=== PATIENT | female | born 1950 | race Caucasian/White ===

== ENCOUNTER 2019-04-06 07:57 | Inpatient (IN) ==
[2019-03-31 18:30] LABS: Appearance,Urine HAZY; Bacteria,Urine FEW /hpf (0); Bilirubin,Urine NEG (NEG); Color,Urine YELLOW; Culture Indicated,Urine NO; Glucose,Urine (UA) NEGATIVE (NEG); Ketones,Urine NEG (NEG); Leukocyte Esterase,Urine 250 /uL (NEG); Mucus,Urine FEW /hpf (0); Nitrate,Urine POS (NEG); Protein,Urine NEG (NEG); Specific Gravity,Urine 1.015 (1.000-1.035); Urine Blood NEG mg/dL (<0.03); Urine Hyaline Cast 18 /lpf (0-2); Urine RBC 1 /hpf (0-1); Urine Squamous Epithelial Cell 5 /hpf (0-4); Urine WBC 84 /hpf (0-4); Urobilinogen,Urine NEG (NEG)
[2019-03-31 19:40] LABS: Basophils # (Auto) 0.06 K/mcL (0.00-0.30); Basophils % (Auto) 0.8 % (0.0-2.0); Eosinophils # (Auto) 0.27 K/mcL (0.00-0.70); Eosinophils % (Auto) 3.5 % (0.0-7.0); Granulocytes % (Auto) 70.1 % (38.0-78.0); Hematocrit 41.7 % (34.1-44.9); Hemoglobin 13.7 g/dL (11.2-15.7); Lymphocytes # (Auto) 1.47 K/mcL (1.50-4.80); Lymphocytes % (Auto) 19.2 % (15.5-49.0); Mean Cell Volume 94.6 fL (80.0-100.0); Mean Corpuscular HGB Conc 32.9 g/dL (31.0-36.0); Mean Platelet Volume 11.1 fL (7.4-10.4); Monocytes # (Auto) 0.49 K/mcL (0.10-0.90); Monocytes % (Auto) 6.4 % (1.0-12.0); Platelet Count 203 K/mcL (140-440); RBC 4.41 M/mcL (3.59-5.38); Red Cell Distribution Width 12.7 % (11.5-14.5); WBC 7.7 K/mcL (4.50-11.00)
[2019-03-31 19:55] LABS: Blood Urea Nitrogen 19 mg/dl (8-23); Calcium 10.2 mg/dl (8.6-10.4); Carbon Dioxide 24 mmol/L (22-30); Glomerular Filtration Rate 35; Glucose 94 mg/dL (70-105)
[2019-03-31 20:15] LABS: Chloride 92 mmol/L (96-108)
[~2019-04-06 07:57] MED LIST: 0.9 % SODIUM CHLORIDE 9 ML, KETOROLAC 30 MG, ROPIVACAINE HCL/PF 49.5 ML, EPINEPHrine 0.... IJ SCH; ACETAMINOPHEN 500 MG TABLET PO SCH; CELECOXIB 200 MG CAPSULE PO SCH; IPRATROPIUM/ALBUTEROL 3 ML AMPUL.NEB NEB PRN; PREGABALIN 75 MG CAPSULE PO SCH; SCOPOLAMINE 1 PATCH PATCH TOPICAL PRN; ceFAZolin 2 GM in DEXTROSE 5% IN WATER 50 ML IV SCH; oxyCODONE 10 MG TAB.ER.12H PO SCH
[2019-04-06 08:37] LABS: Cotinine 165 ng/mL; Nicotine 18 ng/mL
[2019-04-06] MEDS ORDERED: GLYCOPYRROLATE 0.2 MG/ML VIAL IV ONE (12:24)
[2019-04-06] MEDS ORDERED: LIDOCAINE HCL/PF 100 MG/5 ML SYRINGE IV ONE (12:24)
[2019-04-06] MEDS ORDERED: MIDAZOLAM 2 MG/2 ML VIAL IV ONE (12:24)
[2019-04-06] MEDS ORDERED: PROPOFOL 200 MG/20 ML VIAL IV ONE (12:24)
[2019-04-06] MEDS ORDERED: DEXAMETHASONE 10 MG/ML VIAL IV ONE (12:24)
[2019-04-06] MEDS ORDERED: KETAMINE 100 MG/ML ML IV ONE (12:24)
[2019-04-06] MEDS ORDERED: TRANEXAMIC ACID 1,000 MG/10 ML VIAL IV ONE ×2 (12:24→13:44)
[2019-04-06] MEDS ORDERED: ONDANSETRON 4 MG/2 ML VIAL IV ONE (12:24)
[2019-04-06] MEDS ORDERED: GENTAMICIN SULFATE 800 MG/20 ML VIAL IR ONE (13:07)
[2019-04-06] MEDS ORDERED: IPRATROPIUM/ALBUTEROL 3 ML AMPUL.NEB NEB PRN (13:36)
[2019-04-06] MEDS ORDERED: ONDANSETRON 4 MG/2 ML VIAL IV PRN ×2 (13:36→13:44)
[2019-04-06] MEDS ORDERED: MEPERIDINE 25 MG/ML SYRINGE IV PRN (13:36)
[2019-04-06] MEDS ORDERED: fentaNYL 100 MCG/2 ML VIAL IV PRN (13:36)
[2019-04-06] MEDS ORDERED: METHOCARBAMOL 1,000 MG/10 ML VIAL IV PRN (13:36)
[2019-04-06] MEDS ORDERED: TEMAZEPAM 15 MG CAPSULE PO PRN (13:44)
[2019-04-06] MEDS ORDERED: FLEETS ADULT ENEMA PR PRN (13:44)
[2019-04-06] MEDS ORDERED: POLYETHYLENE GLYCOL 3350 17 GM PACKET PO PRN (13:44)
[2019-04-06] MEDS ORDERED: ACETAMINOPHEN 325 MG TABLET PO PRN (13:44)
[2019-04-06] MEDS ORDERED: KETOROLAC 15 MG/ML VIAL IV PRN (13:44)
[2019-04-06] MEDS ORDERED: BENZOCAINE/MENTHOL 1 LOZENGE PO PRN (13:44)
[2019-04-06] MEDS ORDERED: BISACODYL 10 MG SUPP.RECT PR PRN (13:44)
[2019-04-06] MEDS ORDERED: MAGNESIUM HYDROXIDE 30 ML ORAL.SUSP PO PRN (13:44)
--- NOTE | 2019-04-06 13:44 | Brief Operative Note ---
Date of procedure: 04/06/19 Pre-op diagnosis: Left hip djd Post-op diagnosis: same Procedure: left total hip Grafts/Implants: Yes Anesthesia: ALLIEA Surgeon: Kade Ledbetter Field Seismologist: Jon Macias Estimated blood loss (cc): 100 Specimens Removed/Pathology: none sent Condition: stable Disposition: PACU
[2019-04-06] MEDS ORDERED: LACTATED RINGERS 1,000 ML IV SCH (13:45)
[2019-04-06] MEDS ORDERED: HYDROcodone/APAP 10/325MG TABLET PO PRN (13:50)
[2019-04-06] MEDS ORDERED: ONDANSETRON 4 MG ODT TABLET SL PRN (13:50)
[2019-04-06] MEDS ORDERED: DIAZEPAM 5 MG TABLET PO PRN (13:50)
[2019-04-06] MEDS ORDERED: NICOTINE 14 MG PATCH TOPICAL SCH (14:00)
--- NOTE | 2019-04-06 14:36 | XRay Report ---
HISTORY: Postop left hip replacement FINDINGS: There is a well-positioned left total hip prosthesis. There is no fracture or abnormal soft tissue calcification around the joint. Patient has stents in the right external iliac and left superficial femoral arteries. Severe atherosclerotic disease is present in the pelvis and thighs. There has been prior spinal fusion at L4-5. IMPRESSION: Well-positioned left hip prosthesis Interpreted and Authenticated by: Aristeo Villafuerte 04/06/19
--- NOTE | 2019-04-06 15:11 | Operative Note ---
DATE OF OPERATION: 04/06/2019 PREOPERATIVE DIAGNOSIS: Left hip degenerative arthritis, severe. POSTOPERATIVE DIAGNOSIS: Left hip degenerative arthritis, severe. PROCEDURE: Left total hip arthroplasty with Maria Del Rosario size 6 stem neutral neck length with a 36 mm ceramic ball with a size 54 cup cementless with a 25 mm screw with a hooded liner. SURGEON: Kade Ledbetter M.D. ESTIMATED BLOOD LOSS: About 100 mL. DESCRIPTION OF PROCEDURE: The patient was brought to the operating room and put to sleep with general LMA anesthesia. Once asleep, the patient had the left hip sterilely prepped and draped in the usual sterile fashion. Once this was done, a timeout performed confirming the operative site by initials, consent form, and x-ray. Once done, we made a superior approach to the hip. We exposed the superior capsule and this was released. We released the piriformis and obturator internus as well and then subluxed the hip. We cut the neck length at 34 mm from the center of hip rotation using a reciprocating saw. Once done, we were able to then sublux the hip anteriorly, remove the labrum, ream up to the size of 54, implanted a 54 cup, and placed a 25 mm screw with good purchase. We were able then to place a hooded liner. The alignment of the cup was excellent with 40 degrees of inclination and 20 degrees of anteversion. Once done and the poly liner was confirmed, we then prepared the femoral side. This was broached up to the size 6 stem. We took an x-ray of the size 6 stem in a neutral neck length. This seemed to be equal in leg length, and it was noted on x-ray to have quite a capacious distal canal. We then placed some bony cement on the distal stem given the size of the canal for security reasons and tapped the size [address] A ceramic ball with a neutral neck length was placed. The hip was reduced. We irrigated thoroughly and the hip was very stable throughout the arc of motion. We irrigated, repaired the posterior capsule with #1 Ethibond, closed the fascial layer with #1 Stratafix. The skin was closed with Stratafix and adhesive closure to the skin with a sterile bandage. The patient tolerated this well without complication. ROGER:nima Job ID: [id number] Doc ID: [id number] Kade Ledbetter MD
--- NOTE | 2019-04-06 15:52 | Discharge Summary ---
Ortho Discharge - TKA - Patient Instructions Diet: Regular Diet Activity: activity as tolerated, weight bearing as tolerated Total Knee Protocol: For Total Knee: Start ROM BRII with stationary bike or rocking chair. Work on gaining full extension of knee. Posterior dislocation precautions provided. Hip abductor strengthening and gait training instructions provided. Apply Cryocuff as instructed. Dressing Care: May shower in 2 days - Follow Up Plan Follow Up Appointments: Jon Macias PA-C [Physician Cover Seamer] - 04/21/19 9:20 am Disposition: Home, Self-Care Prognosis: Good Rehab Potential: Good I certify that the patient requires SNF services: No Overall status at discharge: patient is progressing back to baseline - Orders For Discharge Prescriptions: Docusate Sodium [Colace] 100 mg PO BID #60 cap Transmission [facility]: [facility] Aspirin [Ecotrin] 325 mg PO BID #60 tab.ec Transmission Status: Pending to [facility]
[2019-04-06] MEDS: HYDROmorphone 2 MG/ML VIAL IV PRN ×3 (16:13→22:33)
[2019-04-06] MEDS: LACTATED RINGERS 1,000 ML IV SCH ×2 (16:14→22:33)
[2019-04-06] MEDS: oxyCODONE/APAP 5/325MG TABLET PO PRN ×2 (17:44→22:33)
[2019-04-06] MEDS: 0.9 % SODIUM CHLORIDE 10 ML SYRINGE IV SCH ×2 (18:56→22:32)
[2019-04-06] MEDS: ceFAZolin 1 GM VIAL IV SCH (20:34)
[2019-04-06] MEDS: DOCUSATE SODIUM 100 MG CAPSULE PO SCH (20:34)
[2019-04-06] MEDS: FERROUS SULFATE 325 MG TABLET PO SCH (20:34)
[2019-04-06] MEDS: ASPIRIN 325 MG ENTERIC COATED TABLET PO SCH (20:34)
[2019-04-06] MEDS ORDERED: morphine 15 MG TAB.SR.12H PO SCH (21:00)
[2019-04-06] MEDS ORDERED: SENNOSIDES 1 TABLET PO SCH (21:00)
[2019-04-06] MEDS: Budesonide/Formoterol Fumarate [Symbicort] 160-4.5 mcg Inhaler INH SCH (22:26)
[2019-04-07] MEDS: HYDROmorphone 2 MG/ML VIAL IV PRN (00:44)
[2019-04-07] MEDS: ceFAZolin 1 GM VIAL IV SCH (04:03)
[2019-04-07] MEDS: 0.9 % SODIUM CHLORIDE 10 ML SYRINGE IV SCH (05:03)
[2019-04-07] MEDS ORDERED: CHLORTHALIDONE 25 MG TABLET PO SCH (09:00)
[2019-04-07] MEDS ORDERED: buPROPion 100 MG TABLET PO SCH (09:00)
[2019-04-07] MEDS ORDERED: busPIRone 5 MG TABLET PO SCH (09:00)
[2019-04-07] MEDS ORDERED: DILTIAZEM 120 MG CAP.XL.24H PO SCH (09:00)
[2019-04-07] MEDS ORDERED: METOPROLOL SUCCINATE 50 MG TAB.XL.24H PO SCH (09:00)
[2019-04-07] MEDS: ASPIRIN 325 MG ENTERIC COATED TABLET PO SCH (09:15)
[2019-04-07] MEDS: FERROUS SULFATE 325 MG TABLET PO SCH (09:15)
[2019-04-07] MEDS: oxyCODONE/APAP 5/325MG TABLET PO PRN ×2 (09:17→14:07)
[2019-04-07] MEDS: DOCUSATE SODIUM 100 MG CAPSULE PO SCH (09:18)
[2019-04-07] MEDS: Budesonide/Formoterol Fumarate [Symbicort] 160-4.5 mcg Inhaler INH SCH (09:19)
[2019-04-07] MEDS: LACTATED RINGERS 1,000 ML IV SCH (09:19)
[2019-04-07] MEDS ORDERED: FLU VACC QS2019-20(6MOS UP)/PF 60 MCG/0.5 ML SYRINGE IM ONE (13:45)
[2019-04-07] MEDS ORDERED: PNEUMOCOCCAL 23-VAL P-SAC VAC 0.5 ML SYRINGE IM ONE (14:00)
== END 2019-04-07 14:20 | disposition home or self-care (01) | DRG 470 ==
LOC: MEDSUR 07:57
PROVIDERS: ADMIT Orthopaedic Surgery; ATTEND Orthopaedic Surgery

== ENCOUNTER 2021-06-28 14:02 | Inpatient (IN) ==
--- NOTE | 2021-06-28 14:17 | Emergency Department Note ---
SOB HPI General Chief Complaint: Shortness of Breath/Dyspnea Stated Complaint: shortness of breath Time Seen by Provider: 06/28/21 14:05 Source: patient, family and EMS Mode of arrival: ambulatory History of Present Illness HPI Narrative: Narrative: 70-year-old female with a history of hyperparathyroidism, COPD, CKD stage III, hypertension, chronic A. fib with no anticoagulation, easy bruising, congestive heart failure, GERD and dysthymia is brought to the ER by ambulance for shortness of breath. She states she was checked out by Dr. Joe the senior occupational therapist yesterday and things looked good. He talked her into starting a daily aspirin as she is not anticoagulated for her chronic atrial fibrillation. She states she bruises easily and that is why she does not want a be on them. She said out of the blue several hours ago she developed shaking chills and shortness of breath. She is around 91% on 4 L/min. She received 2 DuoNeb's in the ambulance with no significant relief. She denies fever, nausea, vomiting, chest pain or chest pressure. She has had no urinary symptoms. Related Data Home Medications Medication Instructions Recorded Confirmed chlorthalidone 25 mg tablet 25 mg PO DAILY #30 tab 10/30/18 06/13/21 aspirin 81 mg tablet,delayed 81 mg PO QDAY 01/13/19 06/13/21 release (Adult Aspirin Regimen) ondansetron 4 mg disintegrating 4 mg SL Q4-6HP PRN 01/13/19 06/13/21 tablet atorvastatin 40 mg tablet 40 mg PO tab 07/14/20 06/13/21 Previous Rx's Medication Instructions Recorded budesonide-formoterol HFA 160 2 puff INHALATION BID #10.2 g 03/12/17 mcg-4.5 mcg/actuation aerosol inhaler (Symbicort) diltiazem HCl 120 mg capsule,24 120 mg PO QDAY #90 cap 11/03/18 hr,extended release docusate sodium 100 mg capsule 100 mg PO BID #60 cap 04/06/19 naloxone 4 mg/actuation nasal 4 mg INTRANASAL ONCE #2 each 04/20/20 spray (Narcan) cholecalciferol (vitamin D3) 25 1,000 unit PO QDAY #90 cap 06/13/20 mcg (1,000 unit) capsule (Vitamin D3) metoprolol succinate 50 mg See Rx Instructions .ROUTE 09/20/20 tablet,extended release 24 hr .COMPLEX 90 Days #180 tab hydrocodone 10 mg-acetaminophen 1 tab PO TID #90 tab MDD 3 04/18/21 325 mg tablet bupropion HCl 100 mg tablet 100 mg PO QDAY #30 tab 05/29/21 diazepam 5 mg tablet 5 mg PO HSP PRN #30 tab 06/05/21 nystatin 100,000 unit/gram topical 1 applic TOPICAL BID #30 g 06/13/21 powder Allergies Allergy/AdvReac Type Severity Reaction Status Date / Time hydroxyzine AdvReac Severe with heart Verified 06/13/21 14:01 palpitations afib going nuts NSAIDS (Non-Steroidal AdvReac Mild Gastrointestinal Verified 06/13/21 14:01 Anti-Inflamma Upset Sulfa (Sulfonamide AdvReac Mild Itching Verified 06/13/21 14:01 Antibiotics) sumatriptan [From Imitrex] AdvReac Mild does not Verified 06/13/21 14:01 work Review of Systems ROS ROS Narrative: Narrative: All systems ED: reviewed and negative except as stated. PFSH Narrative Patient History Narrative: Narrative: Medical/Surgical/Family History All Active Problems (Updated 06/28/21 @ 16:42 by Sacha Seaman PA-C) Pulmonary embolism (Acute) DVT (deep venous thrombosis) (Acute) Pneumonia (Acute) Hyponatremia (Chronic) Hyperparathyroidism (Chronic) Medicare annual wellness visit, initial (Acute) Use of opiates for therapeutic purposes (Chronic) Pruritus (Chronic) Chronic kidney disease (CKD) stage G3b/A1, moderately decreased glomerular filtration rate (GFR) between 30-44 mL/min/1.73 square meter and albuminuria creatinine ratio less than 30 mg/g (Chronic) Right knee sprain (Acute) Osteoarthritis of right knee (Acute) Insomnia (Acute) Essential hypertension (Chronic) Minor head injury (Acute) Atrial fibrillation (Acute) Elevated diaphragm (Chronic) Tobacco use (Chronic) COPD (chronic obstructive pulmonary disease) (Chronic) Menopausal symptoms (Chronic) Contusion of left lower leg (Acute) Chronic cough (Chronic) Migraine (Chronic) Bronchitis due to tobacco use (Chronic) Thyroid nodule (Chronic) CHF (congestive heart failure) (Chronic) Geriatric health maintenance (Chronic) Difficulty swallowing (Chronic) Hoarseness or changing voice (Chronic) Hip arthrosis (Chronic) Bilateral lower extremity pain (Chronic) Chronic low back pain (Chronic) History of ECG (Chronic 03/22/15) History of esophagogastroduodenoscopy (Chronic 11/30/14) 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) Closed patellar sleeve fracture of left knee (Acute) Osteoarthritis (Chronic) Major depression, recurrent (Chronic) Hyperlipidemia (Chronic) Gastroesophageal reflux (Chronic) Dysthymic disorder (Chronic) History of colonic polyps (Chronic) Secondary cardiomyopathy (Chronic) Medical History Anxiety Atrial fibrillation Bilateral lower extremity pain With history of lumbar spondylosis with radiculopathy, currently without myelopathy Breast mass, right (09/01/14) Bronchitis, acute CHF (congestive heart failure) Chronic cough Chronic low back pain Closed patellar sleeve fracture of left knee L COPD (chronic obstructive pulmonary disease) Dysthymic disorder Elevated diaphragm Essential hypertension Gastroenteritis, non-infectious Gastroesophageal reflux Geriatric health maintenance Hip arthrosis Hip arthrosis with chronic pain, currently improved following intaarticular injection History of colonic polyps History of ECG (03/22/15) Hoarseness or changing voice Hyperlipidemia Major depression, recurrent Mass of neck Medicare annual wellness visit, initial Menopausal and postmenopausal disorder Menopausal symptoms Migraine Muscle spasm (09/01/14) Osteoarthritis Right knee sprain Secondary cardiomyopathy Sinusitis Thyroid nodule Incidental finding on chest CT 11/2016 -Subsequent thyroid ultrasound was performed and the nodules are thought to be benign -Repeat thyroid ultrasound 07/2017 benign, stable nodules Tobacco use Use of opiates for therapeutic purposes Surgical History H/O colonoscopy [address] Dr. Palumbo, repeat in 10 years History of arthroscopy of left knee History of cervical discectomy C5-6 with fusion History of esophagogastroduodenoscopy (11/30/14) Dr. Green, April 2016 History of hysterectomy OTIS/BSO at 30 years old History of laminectomy L4-5 History of removal of cyst History of vascular surgery Left Femoral artery stent, Right external Illiac artery stent, Dr PÉREZ 05/2018 Partial traumatic metacarpophalangeal amputation of left index finger artial L index finger Status post hip surgery total left hip, Dr. Ledbetter 04/06/2019 anterior approach Family History Unknown Chronic kidney disease, stage V Malignant neoplasm Father , at 78y Atherosclerosis of coronary artery Diabetes mellitus Essential hypertension Mother Osteoarthritis Peptic ulcer Social History Smoking Status: Current every day smoker Alcohol Intake Frequency: does not drink Exam Narrative Narrative: Narrative: Gen: Patient has shaking chills that are uncontrollable, nasal cannula with 4 L/min, oxygen saturations in the low 90s on 4 L. She looks ill. Eyes: PERRL, no conjunctival injection , and symmetrical lids. Sclerae non icteric HENMT: Normocephalic Atraumatic head, external nose and ears. Moist MM. Neck: Symmetric, trachea midline, no JVD CVS: +S1/S2, No murmurs or gallops. Radial pulses 2+ and equal bilat. No sw elling RESP: Tachypnea, mild wheezing heard throughout with good air movement. GI: Nontender/Nondistended (NTND), No focal tenderness MSK: Extremities w/o deformity or ttp. No cyanosis or clubbing. Skin: Cool dry . No rashes or lesions . Cap refill delayed. Neuro: No focal neurological deficit Psych: Awake, Alert, & Oriented (AAO) x3. Anxious affect. Course Vital Signs Vital signs: Vital Signs Temperature 98.2 F 06/28/21 14:04 Pulse Rate 128 H 06/28/21 14:04 Respiratory Rate 39 H 06/28/21 14:04 Blood Pressure 139/101 06/28/21 14:04 Pulse Oximetry (%) 91 06/28/21 14:04 Temperature 98.2 F 06/28/21 14:04 Pulse Rate 99 H 06/28/21 15:55 Respiratory Rate 26 H 06/28/21 15:55 Blood Pressure 107/77 06/28/21 15:55 Pulse Oximetry (%) 96 06/28/21 15:55 MDM MDM Narrative Medical decision making narrative: Narrative: Patient came in via ambulance with shaking chills, they were unable to get a good Plath or oxygen saturation reading because her hands were so cold. She is very tremulous and shaking. She is anxious. Her sats here in the low 90s on 4 L/min via nasal cannula. She is wheezing throughout but has good air movement. She is tachycardic in the 120s. She is in atrial fibrillation. She is not anticoagulated for this and was to start a daily aspirin starting today but did not take it yet. She denies chest pain, chest pressure or hemoptysis. She will be evaluated with CBC, CMP, EKG, chest x-ray, venous blood gas, lactate, blood cultures, troponin and BNP. CBC: Slightly elevated white count with left shift CMP: GFR of 23 otherwise unremarkable Venous blood gas: Lactate: 4.4 Blood cultures: Pending BNP: elevated at 3000 Troponin: 0 L Covid: Negative EKG: Atrial fibrillation rate of 98 bpm with left axis deviation, no evidence or ST or T wave abnormality to suggest acute ischemia at this time. Chest x-ray: Possible pneumonia vs aspiration UA: No evidence of infection Patient has longstanding history of COPD she became suddenly short of breath and had shaking chills. There is no obvious focal infiltrate on chest x-ray. But this is the most likely source for infectious process. Her initial lactate is 4.4. she is tachycardic and tachypneic meeting SIRS criteria. Initial broad- spectrum antibiotics for pulmonary coverage for community-acquired pneumonia w ill be given. 500 mg of azithromycin and 1 g of Rocephin. Patient will not have empiric bolus of 30 mg/kg of fluid given she has a history of congestive heart failure. She will be started with 500 mL bolus and reevaluated. Repeat lactate will be ordered after reevaluation. Patient is afebrile and maintaining her blood pressure currently There is concern for pulmonary embolism however, her GFR is well below 30 and given the contrast load it is contraindicated. Noncontrast CT of the chest will be ordered as well as venous duplex ultrasound of the bilateral lower extremities. Reevaluation: Patient is much calmer after having a bear hugger placed to warm her up. CT chest:1. Moderate-sized patchy mixed L velar interstitial infiltrates in both posterior lower lobes and scattered within the lingula and inferior right middle lobe. Suspect aspiration or infection. Underlying chronic bronchitis 2. Elevation right diaphragm with broad eventration central tendon right diaphragm - chronic 3. 20 mm benign adenoma left adrenal gland demonstrating long-term stability. 4. 15 mm benign adenoma right thyroid lobe long-term stable Venous duplex ultrasound bilateral: Blood clot in the right posterior tibial vein from the heel to mid calf Complete thrombosis of the right paired posterior tibial veins.The remaining deep venous system of both lower extremities is unremarkable Patient has a presumptive diagnosis of pulmonary embolism. We are still waiting on CT chest to come back. Patient will hopefully be admitted inpatient hospitalist will be contacted at this time. Hospitalist: Patient requested the patient be placed on a heparin drip and he will be glad to admit her. Patient will be started on 5000 initial heparin bolus followed by 18 mg/kg/h. Lab Data Result diagrams: 06/28/21 14:13 06/28/21 14:13 Labs: Lab Results 06/28/21 06/28/21 06/28/21 Range/Units 14:13 14:13 14:44 WBC 11.8 H (4.5-11.0) K/mcL RBC 4.72 (3.59-5.38) M/mcL Hgb 14.9 (11.2-15.7) g/dL Hct 46.6 H (34.1-44.9) % MCV 98.7 (80.0-100.0) fL MCH 31.6 (26.0-34.0) pg MCHC 32.0 (31.0-36.0) g/dL RDW 14.0 (11.5-14.5) % Plt Count 196 (140-440) K/mcL MPV 11.7 H (7.4-10.4) fL Neut % (Auto) 95.0 H (38.0-78.0) % Lymph % (Auto) 4.3 L (15.5-49.0) % [place] % (Auto) 0.4 L (1.0-12.0) % Eos % (Auto) 0.1 (0.0-7.0) % Baso % (Auto) 0.2 (0.0-2.0) % Lymph # (Auto) 0.51 L (1.50-4.80) K/mcL [place] # (Auto) 0.05 L (0.10-0.90) K/mcL Eos # (Auto) 0.01 (0.00-0.70) K/mcL Baso # (Auto) 0.02 (0.00-0.30) K/mcL Absolute Neutrophils 11.17 H (1.80-8.00) K/mcL Sodium 138 (133-145) mmol/L Potassium 3.3 (3.3-5.1) mmol/L Chloride 98 (96-108) mmol/L Carbon Dioxide 24 (22-30) mmol/L Anion Gap 16.0 (8.0-16.0) BUN 16 (8-23) mg/dL Creatinine 2.1 H (0.6-1.1) mg/dL POC Creatinine 2.2 H (0.6-1.2) mg/dL GFR Calculation 23 Glucose 125 H (70-105) mg/dL Calcium 10.3 (8.6-10.4) mg/dL Total Bilirubin 0.8 (0.1-1.0) mg/dL AST 12 (<32) U/L ALT 8 (<40) U/L Alkaline Phosphatase 111 (39-117) U/L NT-Pro-B Natriuret Pep 3092.0 H (<125.0) pg/mL Total Protein 6.5 (5.9-8.4) gm/dL Albumin 3.8 (3.2-5.2) gm/dL Globulin 2.7 (2.2-3.7) gm/dL Albumin/Globulin Ratio 1.4 (1.0-2.3) Urine Color Urine Appearance (Clear) Urine pH (5.0-9.0) Ur Specific Wilbur (1.000-1.035) Urine Protein (Negative) mg/dL Urine Glucose (UA) (Negative) mg/dL Urine Ketones (Negative) mg/dL Urine Occult Blood (Negative) mg/dL Urine Nitrate (Negative) Urine Bilirubin (Negative) mg/dL Urine Urobilinogen mg/dL Ur Leukocyte Esterase (Negative) /uL Urine RBC (0-3) /hpf Urine WBC (0-4) /hpf Ur Squamous Epith Cells (0-4) /hpf Urine Bacteria (0) /hpf Hyaline Casts (0-2) /lph Urine Mucus (None) /hpf Ur Culture Indicated? POC Troponin I 0 L (0.02-0.08) ng/mL 06/28/21 Range/Units 14:53 WBC (4.5-11.0) K/mcL RBC (3.59-5.38) M/mcL Hgb (11.2-15.7) g/dL Hct (34.1-44.9) % MCV (80.0-100.0) fL MCH (26.0-34.0) pg MCHC (31.0-36.0) g/dL RDW (11.5-14.5) % Plt Count (140-440) K/mcL MPV (7.4-10.4) fL Neut % (Auto) (38.0-78.0) % Lymph % (Auto) (15.5-49.0) % [place] % (Auto) (1.0-12.0) % Eos % (Auto) (0.0-7.0) % Baso % (Auto) (0.0-2.0) % Lymph # (Auto) (1.50-4.80) K/mcL [place] # (Auto) (0.10-0.90) K/mcL Eos # (Auto) (0.00-0.70) K/mcL Baso # (Auto) (0.00-0.30) K/mcL Absolute Neutrophils (1.80-8.00) K/mcL Sodium (133-145) mmol/L Potassium (3.3-5.1) mmol/L Chloride (96-108) mmol/L Carbon Dioxide (22-30) mmol/L Anion Gap (8.0-16.0) BUN (8-23) mg/dL Creatinine (0.6-1.1) mg/dL POC Creatinine (0.6-1.2) mg/dL GFR Calculation Glucose (70-105) mg/dL Calcium (8.6-10.4) mg/dL Total Bilirubin (0.1-1.0) mg/dL AST (<32) U/L ALT (<40) U/L Alkaline Phosphatase (39-117) U/L NT-Pro-B Natriuret Pep (<125.0) pg/mL Total Protein (5.9-8.4) gm/dL Albumin (3.2-5.2) gm/dL Globulin (2.2-3.7) gm/dL Albumin/Globulin Ratio (1.0-2.3) Urine Color Yellow Urine Appearance Hazy A (Clear) Urine pH 5.0 (5.0-9.0) Ur Specific Wilbur 1.011 (1.000-1.035) Urine Protein Negative (Negative) mg/dL Urine Glucose (UA) Negative (Negative) mg/dL Urine Ketones Negative (Negative) mg/dL Urine Occult Blood 0.03 (Negative) mg/dL Urine Nitrate Negative (Negative) Urine Bilirubin Negative (Negative) mg/dL Urine Urobilinogen Negative mg/dL Ur Leukocyte Esterase 500 A (Negative) /uL Urine RBC 2 (0-3) /hpf Urine WBC 110 H (0-4) /hpf Ur Squamous Epith Cells 7 H (0-4) /hpf Urine Bacteria None (0) /hpf Hyaline Casts 1 (0-2) /lph Urine Mucus Few A (None) /hpf Ur Culture Indicated? No POC Troponin I (0.02-0.08) ng/mL ED POC Tests ED POC Tests: CATHY - SARS Antigen Negative Discharge Plan Patient/Caregiver Discharge Instructions Pt seen by DIRECTOR BUSINESS/PA only: Yes Clinical Impression: Pulmonary embolism, DVT (deep venous thrombosis), Pneumonia Patient Disposition: Xfer As Inpt ([facility]) Follow up with: Guadalupe Oliveira DO [Primary Care Provider] - Prescriptions: No Action diltiazem HCl 120 mg capsule,extended release 24 hr 120 mg PO QDAY Qty: 90 1RF cholecalciferol (vitamin D3) [Vitamin D3] 25 mcg (1,000 unit) capsule 1,000 unit PO QDAY Qty: 90 4RF bupropion HCl 100 mg tablet 100 mg PO QDAY Qty: 30 0RF diazepam 5 mg tablet 5 mg PO HSP PRN (Reason: Sleep) Qty: 30 0RF Rx Instructions: Michelle Wyatt PA-C one time fill in Dr. Oliveira absence Narcan 4 mg/actuation spray,non-aerosol 4 mg INTRANASAL ONCE Qty: 2 0RF Rx Instructions: spray 1 dose into ONE nostril; alternate nostrils w each dose until help arrives atorvastatin 40 mg tablet 40 mg PO 0RF Label Comments: TAKE ONE TABLET BY MOUTH AT BEDTIME FOR CHOLESTEROL hydrocodone-acetaminophen 10-325 mg tablet 1 tab PO TID MDD 3 Qty: 90 0RF Rx Instructions: *MUST LAST 30 DAYS* P/U 06/23, START 06/26 chlorthalidone 25 mg tablet 25 mg PO DAILY Qty: 30 0RF Label Comments: TAKE 1 TABLET(S) EVERY DAY BY ORAL ROUTE. budesonide-formoterol [Symbicort] 160-4.5 mcg/actuation HFA aerosol inhaler 2 puff INHALATION BID Qty: 10.2 6RF Rx Instructions: administer with spacer aspirin [Adult Aspirin Regimen] 81 mg tablet,delayed release (DR/EC) 81 mg PO QDAY 0RF ondansetron 4 MG tablet 4 mg SL Q4-6HP PRN (Reason: Nausea And Vomiting) 0RF metoprolol succinate 50 mg tablet extended release 24 hr See Rx Instructions .ROUTE .COMPLEX 90 Days Qty: 180 2RF Dose Instruction: TAKE TWO TABLETS BY MOUTH DAILY FOR BLOOD PRESSURE Rx Instructions: TAKE TWO TABLETS BY MOUTH DAILY FOR BLOOD PRESSURE nystatin 100,000 unit/gram powder 1 applic topical BID Qty: 30 3RF docusate sodium 100 MG capsule 100 mg PO BID Qty: 60 0RF
[2021-06-28] MEDS ORDERED: AZITHROMYCIN 500 MG in DEXTROSE 5% IN WATER 250 ML IV ONE (14:38)
[2021-06-28] MEDS ORDERED: cefTRIAXone 1 GM VIAL IV ONE (14:38)
[2021-06-28] MEDS ORDERED: 0.9 % SODIUM CHLORIDE 500 ML IV ONE (14:40)
--- NOTE | 2021-06-28 14:49 | XRay Report ---
CLINICAL INFORMATION: Shortness of breath COMPARISON: 03/05/2018 TECHNIQUE: Portable FINDINGS: The heart size, mediastinum and pulmonary vessels are unremarkable. Moderate interstitial disease is developed in both lower lungs since the previous exam. There are no effusions. The bones and soft tissues are within normal limits. IMPRESSION: Moderate interstitial disease in both lower lungs-new from exam over three years prior. Exact etiology and chronicity unknown. It could represent pneumonia or aspiration. Interpreted and Authenticated by: Khai Lim 06/28/21
[2021-06-28 15:31] LABS: Basophils # (Auto) 0.02 K/mcL (0.00-0.30); Basophils % (Auto) 0.2 % (0.0-2.0); Eosinophils # (Auto) 0.01 K/mcL (0.00-0.70); Eosinophils % (Auto) 0.1 % (0.0-7.0); Hematocrit 46.6 % (34.1-44.9); Hemoglobin 14.9 g/dL (11.2-15.7); Lymphocytes # (Auto) 0.51 K/mcL (1.50-4.80); Lymphocytes % (Auto) 4.3 % (15.5-49.0); Mean Cell Volume 98.7 fL (80.0-100.0); Mean Platelet Volume 11.7 fL (7.4-10.4); Monocytes # (Auto) 0.05 K/mcL (0.10-0.90); Monocytes % (Auto) 0.4 % (1.0-12.0); Platelet Count 196 K/mcL (140-440); RBC 4.72 M/mcL (3.59-5.38); WBC 11.8 K/mcL (4.5-11.0)
[2021-06-28 15:37] LABS: ALT/SGPT 8 U/L (<40); AST/SGOT 12 U/L (<32); Albumin 3.8 gm/dL (3.2-5.2); Albumin/Globulin Ratio 1.4 (1.0-2.3); Alkaline Phosphatase 111 U/L (39-117); Bilirubin,Total 0.8 mg/dL (0.1-1.0); Blood Urea Nitrogen 16 mg/dL (8-23); Calcium 10.3 mg/dL (8.6-10.4); Carbon Dioxide 24 mmol/L (22-30); Chloride 98 mmol/L (96-108); Globulin 2.7 gm/dL (2.2-3.7); Glomerular Filtration Rate 23; Glucose 125 mg/dL (70-105)
--- NOTE | 2021-06-28 16:01 | Ultrasound Report ---
CLINICAL INFORMATION: Bilateral leg pain COMPARISON: None. FINDINGS: There is complete thrombosis of paired right posterior tibial veins. The remaining deep venous system of both lower extremities including the common femoral, superficial femoral, popliteal and paired trifurcation calf veins are easily compressible and show normal venous blood flow on color and spectral Doppler. No evidence of thrombus IMPRESSION: Complete thrombosis of the right paired posterior tibial veins.The remaining deep venous system of both lower extremities is unremarkable Interpreted and Authenticated by: Khai Lim 06/28/21
[2021-06-28 16:02] LABS: Appearance,Urine HAZY (Clear); Bilirubin,Urine Negative (Negative); Color,Urine YELLOW; Culture Indicated,Urine No; Glucose,Urine (UA) Negative (Negative); Ketones,Urine Negative (Negative); Leukocyte Esterase,Urine 500 /uL (Negative); Mucus,Urine FEW /hpf; Nitrate,Urine Negative (Negative); Protein,Urine Negative (Negative); Specific Gravity,Urine 1.011 (1.000-1.035); Urine Blood 0.03 mg/dL (Negative); Urine Hyaline Cast 1 /lph (0-2); Urine RBC 2 /hpf (0-3); Urine Squamous Epithelial Cell 7 /hpf (0-4); Urine WBC 110 /hpf (0-4); Urobilinogen,Urine Negative
--- NOTE | 2021-06-28 16:26 | Cat Scan Report ---
CLINICAL INFORMATION: Hypoxia COMPARISON: 07/16/[address] without contrast TECHNIQUE: 0.625 mm axial slices were obtained from the lung apices through the bases without intravenous contrast. 2.5 mm Sagittal, coronal and axial reformatted images were processed and reviewed at bone, lung and soft tissue windows. 7 mm axial MIP images were also reconstructed to optimize pulmonary nodule detection.The exam was performed using radiation dose optimization techniques including, but not limited to, automated exposure control, adjustment of the mA and/or kV according to patient size and use of iterative reconstruction technique. FINDINGS: Pulmonary parenchymal windows show mild chronic bronchitis changes featuring elevated lung volumes and wall thickening of the bronchi. There are no bullae suggest sangeeta emphysema. Since prior examination, moderate size mixed interstitial/alveolar infiltrates have developed in both posterior lower lobes and scattered within the lingula and right middle lobe. There are no effusions. Mediastinal windows show mild cardiomegaly. The noncontrast thoracic aorta and pulmonary arteries are normal in contour and caliber. No adenopathy in the mediastinal hilar or axillary regions. A 15 mm low-attenuation lesion posterior right thyroid lobe is unchanged since 2011. Mild elevation right diaphragm with eventration central diaphragm is stable. Bones and soft tissues of the chest wall are otherwise normal. Images through abdomen show a 20 mm diameter low-attenuation adenoma in the left adrenal gland which demonstrates long-term stability IMPRESSION: 1. Moderate-sized patchy mixed L velar interstitial infiltrates in both posterior lower lobes and scattered within the lingula and inferior right middle lobe. Suspect aspiration or infection. Underlying chronic bronchitis 2. Elevation right diaphragm with broad eventration central tendon right diaphragm - chronic 3. 20 mm benign adenoma left adrenal gland demonstrating long-term stability. 4. 15 mm benign adenoma right thyroid lobe long-term stable Interpreted and Authenticated by: Khai Lim 06/28/21
[2021-06-28] MEDS ORDERED: HEPARIN SOD,PORK IN 0.45% NACL 25,000 UNIT in PREMIX 1 BAG IV SCH (16:30)
[2021-06-28] MEDS ORDERED: HEPARIN 5,000 UNIT/ML VIAL IV ONE (16:37)
[2021-06-28] MEDS ORDERED: HEPARIN SOD,PORK IN 0.45% NACL 500 ML IV ONE (17:11)
[2021-06-28] MEDS: HEPARIN SOD,PORK IN 0.45% NACL 25,000 UNIT in PREMIX 1 BAG IV SCH (17:11)
--- NOTE | 2021-06-28 18:15 | Internal Med History&Physical ---
HPI History of Present Illness Patient information: Note initiated : 06/28/21 at 6:04 pm Service Date, if different from initiated Date: [] Patient: Nasima Solo a 70 y/o F admitted on for shortness of breath. Chief Complaint: [] Chief complaint: Chills and acute shortness of breath History of present illness: Ms. Solo is a 70 year old F with history of CHF, CKD, hypertension, atrial fibrillation, COPD, active tobacco use, chronic bronchitis, chronic pain syndrome on opiate therapy, peripheral vascular disease, hyperlipidemia, is admitted for acute onset of chills with shortness of breath this morning. Patient was feeling completely well yesterday, she had her appointment with baking factory worker and cardiac stress test was ordered as an outpatient. Her baking factory worker had a discussion about anticoagulation for atrial fibrillation with her, patient declined full dose anticoagulation (she was concerned that she could have at least scars), but agreed to start baby aspirin. This morning however she acutely had chills accompanied with shortness of breath. Denies any cough or sputum production. When she came to the emergency room she was on 91% on 4 L/min of oxygen via nasal cannula. Received 2 DuoNeb's in ambulance with no significant relief. She denied nausea vomiting fever, chest pain or chest pressure. She is accompanied by her in the room. She continues to smoke. Course in the emergency room-tachycardic in 120s. Oxygen saturations in low 80s, needed to be on 4 to 5 L/min via nasal cannula. Lactate 4.4. BNP elevated at 3000. Review of Systems Review of systems: Chills, feeling cold. She felt better after she was started on Philip hugger. Constitutional Constitutional: Absent anorexia, chills, fatigue, fever(s), headache(s), lethargy, malaise or night sweats Cardiovascular Cardiovascular: Absent chest pain, chest pain at rest, diaphoresis, irregular heart rhythm or lightheadedness Gastrointestinal Gastrointestinal: Absent diarrhea, hematemesis, melena, nausea or vomiting Genitourinary Genitourinary: Absent dysuria Neurological Neurological: Absent abnormal gait, abnormal speech, confusion, dizziness or headache(s) PFSH PFSH All Active Problems Pulmonary embolism (Acute) DVT (deep venous thrombosis) (Acute) Pneumonia (Acute) Hyponatremia (Chronic) Hyperparathyroidism (Chronic) Medicare annual wellness visit, initial (Acute) Use of opiates for therapeutic purposes (Chronic) Pruritus (Chronic) Chronic kidney disease (CKD) stage G3b/A1, moderately decreased glomerular filtration rate (GFR) between 30-44 mL/min/1.73 square meter and albuminuria creatinine ratio less than 30 mg/g (Chronic) Right knee sprain (Acute) Osteoarthritis of right knee (Acute) Insomnia (Acute) Essential hypertension (Chronic) Minor head injury (Acute) Atrial fibrillation (Acute) Elevated diaphragm (Chronic) Tobacco use (Chronic) COPD (chronic obstructive pulmonary disease) (Chronic) Menopausal symptoms (Chronic) Contusion of left lower leg (Acute) Chronic cough (Chronic) Migraine (Chronic) Bronchitis due to tobacco use (Chronic) Thyroid nodule (Chronic) CHF (congestive heart failure) (Chronic) Geriatric health maintenance (Chronic) Difficulty swallowing (Chronic) Hoarseness or changing voice (Chronic) Hip arthrosis (Chronic) Bilateral lower extremity pain (Chronic) Chronic low back pain (Chronic) History of ECG (Chronic 03/22/15) History of esophagogastroduodenoscopy (Chronic 11/30/14) 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) Closed patellar sleeve fracture of left knee (Acute) Osteoarthritis (Chronic) Major depression, recurrent (Chronic) Hyperlipidemia (Chronic) Gastroesophageal reflux (Chronic) Dysthymic disorder (Chronic) History of colonic polyps (Chronic) Secondary cardiomyopathy (Chronic) Medical History Anxiety Atrial fibrillation Bilateral lower extremity pain With history of lumbar spondylosis with radiculopathy, currently without myelopathy Breast mass, right (09/01/14) Bronchitis, acute CHF (congestive heart failure) Chronic cough Chronic low back pain Closed patellar sleeve fracture of left knee L COPD (chronic obstructive pulmonary disease) Dysthymic disorder Elevated diaphragm Essential hypertension Gastroenteritis, non-infectious Gastroesophageal reflux Geriatric health maintenance Hip arthrosis Hip arthrosis with chronic pain, currently improved following intaarticular injection History of colonic polyps History of ECG (03/22/15) Hoarseness or changing voice Hyperlipidemia Major depression, recurrent Mass of neck Medicare annual wellness visit, initial Menopausal and postmenopausal disorder Menopausal symptoms Migraine Muscle spasm (09/01/14) Osteoarthritis Right knee sprain Secondary cardiomyopathy Sinusitis Thyroid nodule Incidental finding on chest CT 11/2016 -Subsequent thyroid ultrasound was performed and the nodules are thought to be benign -Repeat thyroid ultrasound 07/2017 benign, stable nodules Tobacco use Use of opiates for therapeutic purposes Surgical History H/O colonoscopy [address] Dr. Palumbo, repeat in 10 years History of arthroscopy of left knee History of cervical discectomy C5-6 with fusion History of esophagogastroduodenoscopy (11/30/14) Dr. Green, April 2016 History of hysterectomy OTIS/BSO at 30 years old History of laminectomy L4-5 History of removal of cyst History of vascular surgery Left Femoral artery stent, Right external Illiac artery stent, Dr PÉREZ 05/2018 Partial traumatic metacarpophalangeal amputation of left index finger artial L index finger Status post hip surgery total left hip, Dr. Ledbetter 04/06/2019 anterior approach Family History Unknown Chronic kidney disease, stage V Malignant neoplasm Father , at 78y Atherosclerosis of coronary artery Diabetes mellitus Essential hypertension Mother Osteoarthritis Peptic ulcer Social History marital status: education level: college occupational status: disabled other: 1 Child, 2 Grandchildren smoking status: Current some day smoker alcohol intake frequency: does not drink MEDS/ALLERGIES Home Medications and Allergies Home Medications Medication Instructions Recorded Confirmed Type budesonide-formoterol HFA 160 2 puff INHALATION BID #10.2 g 03/12/17 06/13/21 Rx mcg-4.5 mcg/actuation aerosol inhaler (Symbicort) chlorthalidone 25 mg tablet 25 mg PO DAILY #30 tab 10/30/18 06/13/21 History diltiazem HCl 120 mg capsule,24 120 mg PO QDAY #90 cap 11/03/18 06/13/21 Rx hr,extended release aspirin 81 mg tablet,delayed 81 mg PO QDAY 01/13/19 06/13/21 History release (Adult Aspirin Regimen) ondansetron 4 mg disintegrating 4 mg SL Q4-6HP PRN 01/13/19 06/13/21 History tablet docusate sodium 100 mg capsule 100 mg PO BID #60 cap 04/06/19 06/13/21 Rx naloxone 4 mg/actuation nasal 4 mg INTRANASAL ONCE #2 each 04/20/20 06/13/21 Rx spray (Narcan) cholecalciferol (vitamin D3) 25 1,000 unit PO QDAY #90 cap 06/13/20 06/13/21 Rx mcg (1,000 unit) capsule (Vitamin D3) atorvastatin 40 mg tablet 40 mg PO tab 07/14/20 06/13/21 History metoprolol succinate 50 mg See Rx Instructions .ROUTE 09/20/20 06/13/21 Rx tablet,extended release 24 hr .COMPLEX 90 Days #180 tab hydrocodone 10 mg-acetaminophen 1 tab PO TID #90 tab MDD 3 04/18/21 06/13/21 Rx 325 mg tablet bupropion HCl 100 mg tablet 100 mg PO QDAY #30 tab 05/29/21 06/13/21 Rx diazepam 5 mg tablet 5 mg PO HSP PRN #30 tab 06/05/21 06/13/21 Rx nystatin 100,000 unit/gram topical 1 applic TOPICAL BID #30 g 06/13/21 06/13/21 Rx powder Allergies Allergy/AdvReac Type Severity Reaction Status Date / Time hydroxyzine AdvReac Severe with heart Verified 06/13/21 14:01 palpitations afib going nuts NSAIDS (Non-Steroidal AdvReac Mild Gastrointestinal Verified 06/13/21 14:01 Anti-Inflamma Upset Sulfa (Sulfonamide AdvReac Mild Itching Verified 06/13/21 14:01 Antibiotics) sumatriptan [From Imitrex] AdvReac Mild does not Verified 06/13/21 14:01 work EXAM Constitutional Vitals: Temp Pulse Resp BP Pulse Ox 98.2 F 59 L 31 H 102/69 96 06/28/21 14:04 06/28/21 17:58 06/28/21 17:58 06/28/21 17:58 06/28/21 17:58 General appearance: average body habitus, cooperative and no acute distress Head Head exam: Present atraumatic and normocephalic Eye Eye exam: Present normal appearance ENT ENT exam: Present mucous membranes moist Respiratory Respiratory exam: Present normal respiratory exam and CTAB; Absent accessory muscle use, rales, respiratory distress, stridor or wheezes Additional comments: Bilateral faint crackles heard. Cardiovascular Additional comments: Irregularly irregular rhythm. Heart rate 100-1 20s. No murmurs. GI/Abdominal GI/Abdominal exam: Present normal bowel sounds and soft; Absent distended, guarding or rebound Expanded Lower Extremity Exam Hip exam: Present normal inspection; Absent swelling Back Exam Back exam: Present normal inspection; Absent CVA tenderness (L), CVA tenderness (R), paraspinal tenderness or vertebral tenderness Neurological Exam Neurological exam: Present alert and oriented X3; Absent abnormal gait or motor sensory deficit DATA Data Completed and Pending Labs: Labs from last 24 hours 06/28/21 06/28/21 06/28/21 14:53 14:44 14:13 WBC RBC Hgb Hct MCV MCH MCHC RDW Plt Count MPV Neut % (Auto) Lymph % (Auto) Power % (Auto) Eos % (Auto) Baso % (Auto) Lymph # (Auto) Power # (Auto) Eos # (Auto) Baso # (Auto) Absolute Neutrophils Sodium 138 Potassium 3.3 Chloride 98 Carbon Dioxide 24 Anion Gap 16.0 BUN 16 Creatinine 2.1 H POC Creatinine 2.2 H GFR Calculation 23 Glucose 125 H Calcium 10.3 Total Bilirubin 0.8 AST 12 ALT 8 Alkaline Phosphatase 111 NT-Pro-B Natriuret Pep 3092.0 H Total Protein 6.5 Albumin 3.8 Globulin 2.7 Albumin/Globulin Ratio 1.4 Urine Color Yellow Urine Appearance Hazy A Urine pH 5.0 Ur Specific [place] 1.011 Urine Protein Negative Urine Glucose (UA) Negative Urine Ketones Negative Urine Occult Blood 0.03 Urine Nitrate Negative Urine Bilirubin Negative Urine Urobilinogen Negative Ur Leukocyte Esterase 500 A Urine RBC 2 Urine WBC 110 H Ur Squamous Epith Cells 7 H Urine Bacteria None Hyaline Casts 1 Urine Mucus Few A Ur Culture Indicated? No POC Troponin I 0 L 06/28/21 14:13 WBC 11.8 H RBC 4.72 Hgb 14.9 Hct 46.6 H MCV 98.7 MCH 31.6 MCHC 32.0 RDW 14.0 Plt Count 196 MPV 11.7 H Neut % (Auto) 95.0 H Lymph % (Auto) 4.3 L Power % (Auto) 0.4 L Eos % (Auto) 0.1 Baso % (Auto) 0.2 Lymph # (Auto) 0.51 L Power # (Auto) 0.05 L Eos # (Auto) 0.01 Baso # (Auto) 0.02 Absolute Neutrophils 11.17 H Sodium Potassium Chloride Carbon Dioxide Anion Gap BUN Creatinine POC Creatinine GFR Calculation Glucose Calcium Total Bilirubin AST ALT Alkaline Phosphatase NT-Pro-B Natriuret Pep Total Protein Albumin Globulin Albumin/Globulin Ratio Urine Color Urine Appearance Urine pH Ur Specific [place] Urine Protein Urine Glucose (UA) Urine Ketones Urine Occult Blood Urine Nitrate Urine Bilirubin Urine Urobilinogen Ur Leukocyte Esterase Urine RBC Urine WBC Ur Squamous Epith Cells Urine Bacteria Hyaline Casts Urine Mucus Ur Culture Indicated? POC Troponin I A/P Narrative A/P Narrative: Ms. Solo is a 70 year old F with history of CHF, CKD, hypertension, atrial fibrillation, COPD, active tobacco use, chronic bronchitis, chronic pain syndrome on opiate therapy, peripheral vascular disease, hyperlipidemia, is admitted for acute onset of chills with shortness of breath this morning. Acute hypoxic respiratory failure Considering her tachycardia, hypoxia acute onset and elevated BNP, especially with right lower extremity DVT, there is a very high chance this patient had thromboembolic episode. We are unable to obtain a CTA due to her CKD. However we have started on IV heparin drip. Her GFR is 23, which precludes her from DOAC therapy . We will start her on warfarin starting tomorrow evening and cover her with IV heparin until INR is above 2 for 24 hours. Oxygen as needed. We will also cover with ceftriaxone and azithromycin for community-acquired pneumonia, with her underlying COPD with bronchitis she is at high risk for catching pulmonary pathogens. Clinically she appears euvolemic. Not in florid heart failure. Do not suspect significant volume overload. Ordered echocardiogram. CHF-as above. I do not see echocardiogram on file. Ordered. Atrial fibrillation-resume metoprolol. COPD with chronic bronchitis-on Symbicort-resumed Active tobacco use-we will need to student counselor on cessation once she is feeling better Chronic pain on opiate therapy-resume [place] 10 mg 3 times daily as needed for pain Peripheral vascular disease resume atorvastatin 40 mg daily DVT prophylaxis-warfarin as above CODE STATUS-discussed with patient and she chooses to be full code. Time Spent With Patient Time: Total time spent is greater than 50% in coordination of care (as documented) at patient's floor/unit and/or counseling patient: Total time spent with greater than 50% in coordination of care (as documented) at patient's floor/unit and/or counseling patient:: 50 - 70 minutes
[2021-06-28] MEDS ORDERED: ONDANSETRON 4 MG/2 ML VIAL IV PRN (18:24)
[2021-06-28] MEDS ORDERED: SENNOSIDES 1 TABLET PO PRN (18:24)
[2021-06-28] MEDS ORDERED: LACTULOSE 20 GM/30 ML ORAL.SOL PO PRN (18:24)
[2021-06-28] MEDS: 0.9 % SODIUM CHLORIDE 1,000 ML IV SCH (19:35)
[2021-06-28] MEDS ORDERED: 0.9 % SODIUM CHLORIDE 1,000 ML BAG IV SCH (19:45)
[2021-06-28] MEDS: cefTRIAXone 2 GM in DEXTROSE 5% IN WATER 50 ML IV SCH (21:19)
[2021-06-28] MEDS: AZITHROMYCIN 250 MG in DEXTROSE 5% IN WATER 250 ML IV SCH (21:20)
[2021-06-28] MEDS: 0.9 % SODIUM CHLORIDE 10 ML SYRINGE IV SCH (21:20)
[2021-06-28] MEDS: DOCUSATE SODIUM 100 MG CAPSULE PO SCH (21:20)
[2021-06-29] MEDS: 0.9 % SODIUM CHLORIDE 10 ML SYRINGE IV SCH ×3 (05:14→22:30)
[2021-06-29] MEDS: 0.9 % SODIUM CHLORIDE 1,000 ML IV SCH (05:14)
[2021-06-29 06:52] LABS: Basophils # (Auto) 0.01 K/mcL (0.00-0.30); Basophils % (Auto) 0.1 % (0.0-2.0); Eosinophils # (Auto) 0 K/mcL (0.00-0.70); Eosinophils % (Auto) 0 % (0.0-7.0); Hematocrit 38.4 % (34.1-44.9); Hemoglobin 12.7 g/dL (11.2-15.7); Lymphocytes # (Auto) 0.38 K/mcL (1.50-4.80); Mean Cell Volume 97.7 fL (80.0-100.0); Mean Corpuscular HGB Conc 33.1 g/dL (31.0-36.0); Mean Platelet Volume 11.3 fL (7.4-10.4); Monocytes # (Auto) 0.18 K/mcL (0.10-0.90); Monocytes % (Auto) 1.4 % (1.0-12.0); Neutrophils % (Auto) 95.5 % (38.0-78.0); Platelet Count 132 K/mcL (140-440); RBC 3.93 M/mcL (3.59-5.38); Red Cell Distribution Width 13.6 % (11.5-14.5); WBC 12.7 K/mcL (4.5-11.0)
[2021-06-29 06:58] LABS: INR 1.3 (0.9-1.1); Prothrombin Time 16.3 sec (11.9-14.5)
[2021-06-29 07:11] LABS: Blood Urea Nitrogen 22 mg/dL (8-23); Calcium 9.3 mg/dL (8.6-10.4); Carbon Dioxide 22 mmol/L (22-30); Chloride 101 mmol/L (96-108); Glomerular Filtration Rate 26; Glucose 166 mg/dL (70-105)
[2021-06-29] MEDS ORDERED: POTASSIUM CHLORIDE 20 MEQ TABLET PO ONE (07:14)
[2021-06-29] MEDS: HEPARIN SOD,PORK IN 0.45% NACL 25,000 UNIT in PREMIX 1 BAG IV SCH (08:24)
--- NOTE | 2021-06-29 08:37 | Internal Med Progress Note ---
SUBJECTIVE Subjective Patient information: Note initiated : 06/29/21 at 8:35 am Service Date, if different from initiated Date: [] Patient: Nasima Solo a 70 y/o F admitted on 06/28/21 for shortness of breath. Chief Complaint: [] Principal diagnosis: Acute hypoxic respiratory failure Interval history: Ms. Solo is a 70 year old F with history of CHF, CKD, hypertension, atrial fibrillation, COPD, active tobacco use, chronic bronchitis, chronic pain syndrome on opiate therapy, peripheral vascular disease, hyperlipidemia, is admitted for acute onset of chills with shortness of breath this morning. Patient was feeling completely well yesterday, she had her appointment with deputy sheriff/investigator and cardiac stress test was ordered as an outpatient. Her deputy sheriff/investigator had a discussion about anticoagulation for atrial fibrillation with her, patient declined full dose anticoagulation (she was concerned that she could have at least scars), but agreed to start baby aspirin. This morning however she acutely had chills accompanied with shortness of breath. Denies any cough or sputum production. When she came to the emergency room she was on 91% on 4 L/min of oxygen via nasal cannula. Received 2 DuoNeb's in ambulance with no significant relief. She denied nausea vomiting fever, chest pain or chest pressure. She is accom panied by her in the room. She continues to smoke. Course in the emergency room-tachycardic in 120s. Oxygen saturations in low 80s, needed to be on 4 to 5 L/min via nasal cannula. Lactate 4.4. BNP elevated at 3000. started on IV heparin. 06/29-she is comfortable. Currently on room air. SPO2 96%. Wants to go home, but I explained the indication for warfarin therapy. She agrees to stay. Constitutional Vitals: Vital Signs Temp Pulse Resp BP Pulse Ox 98.1 F 101 H 13 116/79 96 06/29/21 08:02 06/29/21 08:28 06/29/21 08:28 06/29/21 08:02 06/29/21 08:28 Period Temp Pulse Resp BP Sys/Birch Pulse Ox Last 24 Hr 97.6 F-100.3 F 51-138 13-50 88-139/58-113 90-99 Intake and Output 06/28/21 06/29/21 06/29/21 21:59 05:59 13:59 Intake Total 750 1465 500 Output Total 150 250 Balance 600 1215 500 Weight 92.164 kg Intake & Output: Intake & Output 06/28/21 06/29/21 06/29/21 21:59 05:59 13:59 Intake Total 750 1465 500 Output Total 150 250 Balance 600 1215 500 Weight 92.164 kg Intake: IV 750 965 500 Sodium Chloride 0.9% 1,000 ml @ 965 100 mls/hr IV .Q10H [facility] Rx#: [id number] Sodium Chloride 0.9% 500 ml @ 500 Wide Open IV BOLUS ONE Rx#: [id number] Zithromax 500 mg In Dextrose 5% 250 in Water 250 ml @ 250 mls/hr IV ONCE ONE Rx#:[id number] Heparin/0.45%Ns 25,000 Unit In 500 Premix 1 Bag @ 18 UNIT/KG/HR 35 .108 mls/hr IV .[id number] [facility] Rx# :[id number] Oral 500 Output: Void Amount 150 250 Other: Meal half egg sandwich, cup of peaches Percent of Meal Consumed 50% Feeding Ability Independent Urine Appearance Clear Clear Urine Color Light Dorie Pale General appearance: average body habitus, cooperative and no acute distress Head Head exam: Present atraumatic and normocephalic Eye Eye exam: Present normal appearance Respiratory Respiratory exam: Present normal respiratory exam and CTAB; Absent accessory muscle use, decreased breath sounds or respiratory distress Cardiovascular Cardiovascular exam: Present normal rate and rhythm and RRR; Absent bradycardia, gallop, systolic murmur or tachycardia GI/Abdominal GI/Abdominal exam: Present soft Neurological Exam Neurological exam: Present alert and oriented X3; Absent altered or motor sensory deficit OBJ DATA Labs CBC & Chem 7: 06/29/21 05:50 06/29/21 05:50 Labs: Abnormal Lab Results 06/29/21 06/29/21 06/29/21 05:50 05:50 05:50 WBC 12.7 H Hct Plt Count 132 L MPV 11.3 H Neut % (Auto) 95.5 H Lymph % (Auto) 3.0 L [place] % (Auto) Lymph # (Auto) 0.38 L [place] # (Auto) Absolute Neutrophils 12.09 H PT 16.3 H INR 1.3 H Potassium 3.2 L Creatinine 1.9 H POC Creatinine Glucose 166 H NT-Pro-B Natriuret Pep Urine Appearance Ur Leukocyte Esterase Urine WBC Ur Squamous Epith Cells Urine Mucus POC Troponin I 06/28/21 06/28/21 06/28/21 14:53 14:44 14:13 WBC Hct Plt Count MPV Neut % (Auto) Lymph % (Auto) [place] % (Auto) Lymph # (Auto) [place] # (Auto) Absolute Neutrophils PT INR Potassium Creatinine 2.1 H POC Creatinine 2.2 H Glucose 125 H NT-Pro-B Natriuret Pep 3092.0 H Urine Appearance Hazy A Ur Leukocyte Esterase 500 A Urine WBC 110 H Ur Squamous Epith Cells 7 H Urine Mucus Few A POC Troponin I 0 L 06/28/21 14:13 WBC 11.8 H Hct 46.6 H Plt Count MPV 11.7 H Neut % (Auto) 95.0 H Lymph % (Auto) 4.3 L [place] % (Auto) 0.4 L Lymph # (Auto) 0.51 L [place] # (Auto) 0.05 L Absolute Neutrophils 11.17 H PT INR Potassium Creatinine POC Creatinine Glucose NT-Pro-B Natriuret Pep Urine Appearance Ur Leukocyte Esterase Urine WBC Ur Squamous Epith Cells Urine Mucus POC Troponin I Meds: Medications Docusate Sodium (Docusate Sodium 100 Mg Capsule) 100 mg PO BID [facility] Last Admin: 06/28/21 21:20 Dose: 100 mg Documented by: Heparin Sodium/Sodium Chloride (25,000 unit/ Premix) 500 mls @ 35.108 mls/hr IV .[id number] [facility]; Protocol Last Admin: 06/29/21 08:24 Dose: 18 unit/kg/hr, 35.108 mls/hr Documented by: Ceftriaxone Sodium 2 gm/ (Dextrose) 50 mls @ 100 mls/hr IV DAILY [facility]; Protocol Last Admin: 06/28/21 21:19 Dose: Not Given Documented by: Azithromycin 250 mg/ Dextrose 250 mls @ 250 mls/hr IV DAILY@1000 [facility]; Protocol Stop: 06/30/21 10:59 Last Admin: 06/28/21 21:20 Dose: Not Given Documented by: Sodium Chloride (Sodium Chloride 0.9%) 1,000 mls @ 100 mls/hr IV .Q10H [facility] Stop: 06/29/21 20:29 Last Admin: 06/29/21 05:14 Dose: 100 mls/hr Documented by: Lactulose (Lactulose 20 Gm/30 Ml Oral.Joanna) 10 gm PO DAILYP PRN PRN Reason: Constipation Ondansetron HCl (Ondansetron 4 Mg/2 Ml Vial) 4 mg IV Q4HP PRN; Protocol PRN Reason: Nausea And Vomiting Senna (Sennosides 1 Tablet) 2 tab PO HSP PRN PRN Reason: Constipation Sodium Chloride (0.9 % Sodium Chloride 10 Ml Syringe) 10 ml IV Q8 [facility] Last Admin: 06/29/21 05:14 Dose: 10 ml Documented by: Warfarin Sodium (Warfarin 5 Mg Tablet) 5 mg PO ONCE@1500 ONE Stop: 06/29/21 15:01 Warfarin Sodium (Warfarin Per Pharmacy) 1 order PO UD [facility] A/P Narrative A/P Narrative: Ms. Solo is a 70 year old F with history of CHF, CKD, hypertension, atrial fibrillation, COPD, active tobacco use, chronic bronchitis, chronic pain syndrome on opiate therapy, peripheral vascular disease, hyperlipidemia, is admitted for acute onset of chills with shortness of breath this morning. Acute hypoxic respiratory failure Considering her tachycardia, hypoxia acute onset and elevated BNP, especially w ith right lower extremity DVT, there is a very high chance this patient had a thromboembolic episode. We are unable to obtain a CTA due to her CKD. However we have started on IV heparin drip. Her GFR is 23, which precludes her from DOAC therapy . We will start her on warfarin and cover her with IV heparin until INR is above 2 for 24 hours. Oxygen as needed. We will also cover with ceftriaxone and azithromycin for community-acquired pneumonia, with her underlying COPD with bronchitis she is at high risk for catching pulmonary pathogens. Clinically she appears euvolemic. Not in florid heart failure. Do not suspect significant volume overload. Ordered echocardiogram, which was done this morning. Await report. CHF-as above. I do not see echocardiogram on file. Ordered. Atrial fibrillation-resume metoprolol. COPD with chronic bronchitis-on Symbicort-resumed Active tobacco use-we will need to elementary school counselor on cessation once she is feeling better Chronic pain on opiate therapy-resume [place] 10 mg 3 times daily as needed for pain Peripheral vascular disease resume atorvastatin 40 mg daily DVT prophylaxis-warfarin as above CODE STATUS-discussed with patient and she chooses to be full code. Time Spent With Patient Time: Total time spent is greater than 50% in coordination of care (as documented) at patient's floor/unit and/or counseling patient: Total time spent with greater than 50% in coordination of care (as documented) at patient's floor/unit and/or counseling patient:: 25 - 35 minutes QUALITY VTE Deep Vein Thrombosis/Pulmonary Embolism Present on Admission: Yes
[2021-06-29] MEDS ORDERED: ONDANSETRON 4 MG ODT TABLET SL PRN (10:56)
[2021-06-29] MEDS: DILTIAZEM 120 MG CAP.XL.24H PO SCH (11:16)
[2021-06-29] MEDS: VITAMIN D3 25 MCG TABLET PO SCH (11:16)
[2021-06-29] MEDS: HYDROcodone/APAP 10/325MG TABLET PO PRN (11:16)
[2021-06-29] MEDS: LORATADINE 10 MG TABLET PO SCH (11:16)
[2021-06-29] MEDS: buPROPion 100 MG TABLET PO SCH (11:16)
[2021-06-29] MEDS: AZITHROMYCIN 250 MG in DEXTROSE 5% IN WATER 250 ML IV SCH (11:17)
[2021-06-29] MEDS: ASPIRIN 81 MG TAB.CHEW PO SCH (11:17)
[2021-06-29] MEDS: DOCUSATE SODIUM 100 MG CAPSULE PO SCH ×2 (11:19→21:28)
[2021-06-29] MEDS: cefTRIAXone 2 GM in DEXTROSE 5% IN WATER 50 ML IV SCH (12:38)
--- NOTE | 2021-06-29 12:40 | EKG ---
[facility] Test Date: 2021-06-28 Pat Name: Nasima Solo Department: ED Room: Gender: Female Director Of Marketing: CS : 1950 Requested By: Sacha Seaman Order Number: [id number] Reading MD: Vikram Castro Measurements Intervals [place] Rate: 98 P: NM: QRS: -30 QRSD: 94 T: 2 QT: 363 QTc: 464 Interpretive Statements Atrial fibrillation Left axis deviation Low voltage, precordial leads Abnormal R-wave progression, late transition Electronically Signed On 06-29-2021 12:40:12 PDT by Vikram Castro /store/M0/[id number]
--- NOTE | 2021-06-29 14:12 | Internal Med Progress Note ---
SUBJECTIVE Subjective Patient information: Note initiated : 06/29/21 at 2:07 pm Service Date, if different from initiated Date: [] Patient: Nasima Solo a 70 y/o F admitted on 06/28/21 for shortness of breath. Chief Complaint: [] Principal diagnosis: Acute hypoxic respiratory failure Interval history: Ms. Solo is a 70 year old F with history of CHF, CKD, hypertension, atrial fibrillation, COPD, active tobacco use, chronic bronchitis, chronic pain syndrome on opiate therapy, peripheral vascular disease, hyperlipidemia, is admitted for acute onset of chills with shortness of breath this morning. Patient was feeling completely well yesterday, she had her appointment with contract lead and cardiac stress test was ordered as an outpatient. Her contract lead had a discussion about anticoagulation for atrial fibrillation with her, patient declined full dose anticoagulation (she was concerned that she could have at least scars), but agreed to start baby aspirin. This morning however she acutely had chills accompanied with shortness of breath. Denies any cough or sputum production. When she came to the emergency room she was on 91% on 4 L/min of oxygen via nasal cannula. Received 2 DuoNeb's in ambulance with no significant relief. She denied nausea vomiting fever, chest pain or chest pressure. She is accom panied by her in the room. She continues to smoke. Course in the emergency room-tachycardic in 120s. Oxygen saturations in low 80s, needed to be on 4 to 5 L/min via nasal cannula. Lactate 4.4. BNP elevated at 3000. started on IV heparin. 06/29-she is comfortable. Currently on room air. SPO2 96%. Wants to go home, but I explained the indication for warfarin therapy. She agrees to stay. 06/30 Constitutional Vitals: Vital Signs Temp Pulse Resp BP Pulse Ox 98.2 F 79 24 H 129/88 100 06/29/21 12:00 06/29/21 12:12 06/29/21 12:12 06/29/21 12:00 06/29/21 12:12 Period Temp Pulse Resp BP Sys/Birch Pulse Ox Last 24 Hr 97.6 F-100.3 F 51-138 13-50 88-139/58-113 90-100 Intake and Output 03/31/22 03/31/22 03/31/22 05:59 13:59 21:59 Intake Total 1465 1248 Output Total 250 625 Balance 1215 623 Intake & Output: Intake & Output 06/29/21 06/29/21 06/29/21 05:59 13:59 21:59 Intake Total 1465 1248 Output Total 250 625 Balance 1215 623 Intake: IV 965 768 Sodium Chloride 0.9% 1,000 ml @ 965 100 mls/hr IV .Q10H [facility] Rx#: [id number] Zithromax 250 mg In Dextrose 5% 250 in Water 250 ml @ 250 mls/hr IV DAILY@1000 [facility] Rx#:[id number] Heparin/0.45%Ns 25,000 Unit In 518 Premix 1 Bag @ 18 UNIT/KG/HR 35 .108 mls/hr IV .[id number] [facility] Rx# :[id number] Oral 500 480 Output: Void Amount 250 625 Other: Meal Breakfast Percent of Meal Consumed 75% Feeding Ability Independent Urine Appearance Clear Clear Urine Color Pale Bright Yellow Exam: General: Alert, Awake, No acute Distress, obese Eyes/N/T: EOMI, Head/Neck: neck supple, CV: RRR, No murmurs, Pulm: Clear b/l, no wheezing/rhonchi/rales Abd: soft, nontender, +BS x4 Ext: no clubbing/cyanosis/edema Neuro: Alert, no focal deficits, moves all extremities, Skin: warm/dry OBJ DATA Labs CBC & Chem 7: 06/29/21 05:50 06/29/21 05:50 Labs: Abnormal Lab Results 06/29/21 06/29/21 06/29/21 05:50 05:50 05:50 WBC Hct Plt Count MPV Neut % (Auto) Lymph % (Auto) [place] % (Auto) Lymph # (Auto) [place] # (Auto) Absolute Neutrophils PT 16.3 H INR 1.3 H APTT 200.0 H* Potassium 3.2 L Creatinine 1.9 H POC Creatinine Glucose 166 H NT-Pro-B Natriuret Pep Urine Appearance Ur Leukocyte Esterase Urine WBC Ur Squamous Epith Cells Urine Mucus POC Troponin I 06/29/21 06/28/21 06/28/21 05:50 14:53 14:44 WBC 12.7 H Hct Plt Count 132 L MPV 11.3 H Neut % (Auto) 95.5 H Lymph % (Auto) 3.0 L [place] % (Auto) Lymph # (Auto) 0.38 L [place] # (Auto) Absolute Neutrophils 12.09 H PT INR APTT Potassium Creatinine POC Creatinine 2.2 H Glucose NT-Pro-B Natriuret Pep Urine Appearance Hazy A Ur Leukocyte Esterase 500 A Urine WBC 110 H Ur Squamous Epith Cells 7 H Urine Mucus Few A POC Troponin I 06/28/21 06/28/21 14:13 14:13 WBC 11.8 H Hct 46.6 H Plt Count MPV 11.7 H Neut % (Auto) 95.0 H Lymph % (Auto) 4.3 L [place] % (Auto) 0.4 L Lymph # (Auto) 0.51 L [place] # (Auto) 0.05 L Absolute Neutrophils 11.17 H PT INR APTT Potassium Creatinine 2.1 H POC Creatinine Glucose 125 H NT-Pro-B Natriuret Pep 3092.0 H Urine Appearance Ur Leukocyte Esterase Urine WBC Ur Squamous Epith Cells Urine Mucus POC Troponin I 0 L Meds: Medications Hydrocodone Bitart/Acetaminophen (Hydrocodone/Apap 10/325mg Tablet) 1 tab PO TID PRN; Protocol PRN Reason: pain Aspirin (Aspirin 81 Mg Tab.Chew) 81 mg PO DAILY [facility] Last Admin: 06/29/21 11:17 Dose: 81 mg Documented by: Atorvastatin Calcium (Atorvastatin 40 Mg Tablet) 40 mg PO [facility] Bupropion HCl (Bupropion 100 Mg Tablet) 100 mg PO QDAY [facility] Last Admin: 06/29/21 11:16 Dose: 100 mg Documented by: Diazepam (Diazepam 5 Mg Tablet) 5 mg PO HSP PRN PRN Reason: insomnia Diltiazem HCl (Diltiazem 120 Mg Cap.Xl.24h) 120 mg PO DAILY [facility] Last Admin: 06/29/21 11:16 Dose: 120 mg Documented by: Docusate Sodium (Docusate Sodium 100 Mg Capsule) 100 mg PO BID [facility] Heparin Sodium/Sodium Chloride (25,000 unit/ Premix) 500 mls @ 35.108 mls/hr IV .[id number] [facility]; Protocol Last Titration: 06/29/21 10:14 Dose: 14 unit/kg/hr, 27.306 mls/hr Documented by: Ceftriaxone Sodium 2 gm/ (Dextrose) 50 mls @ 100 mls/hr IV DAILY [facility]; Protocol Last Admin: 06/29/21 12:38 Dose: 100 mls/hr Documented by: Azithromycin 250 mg/ Dextrose 250 mls @ 250 mls/hr IV DAILY@1000 [facility]; Protocol Stop: 06/30/21 10:59 Last Infusion: 06/29/21 12:20 Dose: Infused Documented by: Sodium Chloride (Sodium Chloride 0.9%) 1,000 mls @ 100 mls/hr IV .Q10H [facility] Stop: 06/29/21 20:29 Last Admin: 06/29/21 05:14 Dose: 100 mls/hr Documented by: Lactulose (Lactulose 20 Gm/30 Ml Oral.Joanna) 10 gm PO DAILYP PRN PRN Reason: Constipation Loratadine (Loratadine 10 Mg Tablet) 10 mg PO QDAY [facility] Last Admin: 06/29/21 11:16 Dose: 10 mg Documented by: Nystatin (Nystatin Powder Bottle 15gm) 1 dose TOPICAL BID [facility] Ondansetron HCl (Ondansetron 4 Mg Odt Tablet) 4 mg SL Q6HP PRN PRN Reason: Nausea And Vomiting Budesonide- Formoterol [ Symbicort] 160-4.5 Mcg Inhaler 2 dose INH BID [facility] Senna (Sennosides 1 Tablet) 2 tab PO HSP PRN PRN Reason: Constipation Sodium Chloride (0.9 % Sodium Chloride 10 Ml Syringe) 10 ml IV Q8 [facility] Last Admin: 06/29/21 05:14 Dose: 10 ml Documented by: Vitamin D (Vitamin D3 25 Mcg Tablet) 25 mcg PO DAILY [facility] Last Admin: 06/29/21 11:16 Dose: 25 mcg Documented by: Warfarin Sodium (Warfarin 5 Mg Tablet) 5 mg PO ONCE@1500 ONE Stop: 06/29/21 15:01 Warfarin Sodium (Warfarin Per Pharmacy) 1 order PO UD [facility] A/P Narrative A/P Narrative: A/P: #Acute hypoxic respiratory failure: Considering her tachycardia/hypoxia acute onset/elevated BNP/especially with right lower extremity DVT, there is a very high chance this patient had a thromboembolic episode -We are unable to obtain a CTA due to her CKD. -Her GFR is 23, which precludes her from DOAC therapy -We will start her on warfarin and cover her with IV heparin until INR is above 2 for 24 hours -Oxygen as needed. -also cover with ceftriaxone/azithromycin for CAP, with her underlying COPD/bronchitis she is at high risk for catching pulmonary pathogens. -appears euvolemic. Not in florid heart failure. Do not suspect significant volume overload. #h/o CHF: I do not see echocardiogram on file. Ordered. #Atrial fibrillation: resume metoprolol. #CKD IV: follows with Dr. Roberson #COPD w/chronic bronchitis: on Symbicort resumed #Tobacco abuse: #Chronic pain on opiate therapy: resume [place] 10 mg 3 times daily as needed for pain #Peripheral vascular disease: resume atorvastatin 40 mg daily #ppx: warfarin as above CODE STATUS-discussed with patient and she chooses to be full code. Time Spent With Patient Time: Total time spent is greater than 50% in coordination of care (as documented) at patient's floor/unit and/or counseling patient: QUALITY VTE Deep Vein Thrombosis/Pulmonary Embolism Present on Admission: Yes
[2021-06-29] MEDS ORDERED: WARFARIN 5 MG TABLET PO ONE (15:00)
[2021-06-29] MEDS: ATORVASTATIN 40 MG TABLET PO SCH (21:28)
[2021-06-29] MEDS: NYSTATIN POWDER BOTTLE 15GM TOPICAL SCH (21:38)
[2021-06-29] MEDS: Budesonide-Formoterol [Symbicort] 160-4.5 mcg Inhaler INH SCH (22:30)
[2021-06-29] MEDS: COMBIVENT RESPIMAT INH SCH (22:31)
[2021-06-29] MEDS: DIAZEPAM 5 MG TABLET PO PRN (22:31)
[2021-06-30] MEDS: HEPARIN SOD,PORK IN 0.45% NACL 25,000 UNIT in PREMIX 1 BAG IV SCH ×2 (02:10→11:09)
[2021-06-30] MEDS: HYDROcodone/APAP 10/325MG TABLET PO PRN ×3 (02:21→19:18)
[2021-06-30 05:07] LABS: Basophils # (Auto) 0.02 K/mcL (0.00-0.30); Basophils % (Auto) 0.1 % (0.0-2.0); Eosinophils # (Auto) 0 K/mcL (0.00-0.70); Eosinophils % (Auto) 0 % (0.0-7.0); Hematocrit 33.8 % (34.1-44.9); Hemoglobin 11.4 g/dL (11.2-15.7); Lymphocytes # (Auto) 0.79 K/mcL (1.50-4.80); Lymphocytes % (Auto) 5.5 % (15.5-49.0); Mean Cell Volume 95.5 fL (80.0-100.0); Mean Corpuscular HGB Conc 33.7 g/dL (31.0-36.0); Mean Platelet Volume 11.8 fL (7.4-10.4); Monocytes # (Auto) 0.38 K/mcL (0.10-0.90); Monocytes % (Auto) 2.6 % (1.0-12.0); Neutrophils % (Auto) 91.8 % (38.0-78.0); Platelet Count 142 K/mcL (140-440); RBC 3.54 M/mcL (3.59-5.38); Red Cell Distribution Width 13.6 % (11.5-14.5); WBC 14.4 K/mcL (4.5-11.0)
[2021-06-30 05:23] LABS: Prothrombin Time 13.8 sec (11.9-14.5)
[2021-06-30 05:50] LABS: ALT/SGPT 8 U/L (<40); AST/SGOT 17 U/L (<32); Albumin 3.3 gm/dL (3.2-5.2); Albumin/Globulin Ratio 1.4 (1.0-2.3); Alkaline Phosphatase 62 U/L (39-117); Bilirubin,Direct < 0.2 mg/dL (0-0.3); Bilirubin,Total 0.4 mg/dL (0.1-1.0); Blood Urea Nitrogen 23 mg/dL (8-23); Calcium 9.5 mg/dL (8.6-10.4); Carbon Dioxide 20 mmol/L (22-30); Chloride 97 mmol/L (96-108); Globulin 2.3 gm/dL (2.2-3.7); Glomerular Filtration Rate 34; Glucose 135 mg/dL (70-105); Lactate Dehydrogenase 172 U/L (135-225); Phosphorous 2.2 mg/dL (2.5-4.5); Triglycerides 152 mg/dL (<150); Uric Acid 8.3 mg/dL (2.5-8.0)
[2021-06-30] MEDS: 0.9 % SODIUM CHLORIDE 10 ML SYRINGE IV SCH ×3 (05:53→21:39)
[2021-06-30] MEDS ORDERED: HEPARIN 5,000 UNIT/ML VIAL ONE (06:38)
[2021-06-30] MEDS ORDERED: BENZONATATE 100 MG CAPSULE PO PRN (06:47)
[2021-06-30] MEDS: DOCUSATE SODIUM 100 MG CAPSULE PO SCH ×2 (08:20→21:36)
[2021-06-30] MEDS: LORATADINE 10 MG TABLET PO SCH (08:20)
[2021-06-30] MEDS: buPROPion 100 MG TABLET PO SCH (08:20)
[2021-06-30] MEDS: VITAMIN D3 25 MCG TABLET PO SCH (08:20)
[2021-06-30] MEDS: DILTIAZEM 120 MG CAP.XL.24H PO SCH (08:20)
[2021-06-30] MEDS: ASPIRIN 81 MG TAB.CHEW PO SCH (08:20)
--- NOTE | 2021-06-30 08:34 | Internal Med Progress Note ---
SUBJECTIVE Subjective Patient information: Note initiated : 06/30/21 at 8:26 am Service Date, if different from initiated Date: [] Patient: Nasima Solo a 70 y/o F admitted on 06/28/21 for shortness of breath. Chief Complaint: [] Principal diagnosis: Acute hypoxic respiratory failure Interval history: Ms. Solo is a 70 year old F with history of CHF, CKD, hypertension, atrial fibrillation, COPD, active tobacco use, chronic bronchitis, chronic pain syndrome on opiate therapy, peripheral vascular disease, hyperlipidemia, is admitted for acute onset of chills with shortness of breath this morning. Patient was feeling completely well yesterday, she had her appointment with wafer line worker and cardiac stress test was ordered as an outpatient. Her wafer line worker had a discussion about anticoagulation for atrial fibrillation with her, patient declined full dose anticoagulation (she was concerned that she could have at least scars), but agreed to start baby aspirin. This morning however she acutely had chills accompanied with shortness of breath. Denies any cough or sputum production. When she came to the emergency room she was on 91% on 4 L/min of oxygen via nasal cannula. Received 2 DuoNeb's in ambulance with no significant relief. She denied nausea vomiting fever, chest pain or chest pressure. She is accom panied by her in the room. She continues to smoke. Course in the emergency room-tachycardic in 120s. Oxygen saturations in low 80s, needed to be on 4 to 5 L/min via nasal cannula. Lactate 4.4. BNP elevated at 3000. started on IV heparin. 06/29-she is comfortable. Currently on room air. SPO2 96%. Wants to go home, but I explained the indication for warfarin therapy. She agrees to stay. 06/30 Patient breathing better. Currently on room air. On IV heparin drip with warfarin. Leukocytosis worsened. Manual differential pending. Hyponatremia and low Phos. Has a dry cough. Review of Systems: denies headache/fever/chills/nausea/vomiting/chest or abdominal pain/diarrhea. Otherwise see above. Constitutional Vitals: Vital Signs Temp Pulse Resp BP Pulse Ox 98 F 85 21 133/92 93 06/30/21 08:03 06/30/21 07:00 06/30/21 08:03 06/30/21 08:03 06/30/21 08:03 Period Temp Pulse Resp BP Sys/Birch Pulse Ox Last 24 Hr 98 F-98.7 F 55-123 13-27 122-157/58-99 93-100 Intake and Output 06/29/21 06/30/21 06/30/21 21:59 05:59 13:59 Intake Total 2329 481 Output Total 600 1325 Balance 1729 -1325 481 Weight 95.283 kg Intake & Output: Intake & Output 06/29/21 06/30/21 06/30/21 21:59 05:59 13:59 Intake Total 2329 481 Output Total 600 1325 Balance 1729 -1325 481 Weight 95.283 kg Intake: IV 1069 241 Sodium Chloride 0.9% 1,000 ml @ 902 100 mls/hr IV .Q10H [facility] Rx#: [id number] Heparin/0.45%Ns 25,000 Unit In 167 241 Premix 1 Bag @ 18 UNIT/KG/HR 35 .108 mls/hr IV .[id number] [facility] Rx# :[id number] Oral 1260 240 Output: Void Amount 600 1325 Other: Meal Dinner Breakfast Percent of Meal Consumed 75% 100% Feeding Ability Independent Independent Urine Appearance Clear Clear Urine Color Straw Straw Exam: General: Alert, Awake, No acute Distress, obese Eyes/N/T: EOMI, Head/Neck: neck supple, CV: RRR, No murmurs, Pulm: Right lung diminished, no wheezing/rhonchi/rales Abd: soft, nontender, +BS x4 Ext: no clubbing/cyanosis/edema Neuro: Alert, no focal deficits, moves all extremities, Skin: warm/dry OBJ DATA Labs CBC & Chem 7: 06/30/21 04:10 06/30/21 04:10 Labs: Abnormal Lab Results 06/30/21 06/30/21 06/30/21 04:10 04:10 04:10 WBC 14.4 H RBC 3.54 L Hct 33.8 L Plt Count MPV 11.8 H Neut % (Auto) 91.8 H Lymph % (Auto) 5.5 L [place] % (Auto) Lymph # (Auto) 0.79 L [place] # (Auto) Absolute Neutrophils 13.24 H PT INR APTT 53.2 H Sodium 130 L Potassium Carbon Dioxide 20 L Creatinine 1.5 H POC Creatinine Glucose 135 H Uric Acid 8.3 H Phosphorus 2.2 L NT-Pro-B Natriuret Pep Total Protein 5.6 L Triglycerides 152 H Urine Appearance Ur Leukocyte Esterase Urine WBC Ur Squamous Epith Cells Urine Mucus POC Troponin I 06/29/21 06/29/21 06/29/21 18:16 15:00 05:50 WBC RBC Hct Plt Count MPV Neut % (Auto) Lymph % (Auto) [place] % (Auto) Lymph # (Auto) [place] # (Auto) Absolute Neutrophils PT INR APTT 70.5 H > 200 H* > 200 H* Sodium Potassium Carbon Dioxide Creatinine POC Creatinine Glucose Uric Acid Phosphorus NT-Pro-B Natriuret Pep Total Protein Triglycerides Urine Appearance Ur Leukocyte Esterase Urine WBC Ur Squamous Epith Cells Urine Mucus POC Troponin I 06/29/21 06/29/21 06/29/21 05:50 05:50 05:50 WBC 12.7 H RBC Hct Plt Count 132 L MPV 11.3 H Neut % (Auto) 95.5 H Lymph % (Auto) 3.0 L [place] % (Auto) Lymph # (Auto) 0.38 L [place] # (Auto) Absolute Neutrophils 12.09 H PT 16.3 H INR 1.3 H APTT Sodium Potassium 3.2 L Carbon Dioxide Creatinine 1.9 H POC Creatinine Glucose 166 H Uric Acid Phosphorus NT-Pro-B Natriuret Pep Total Protein Triglycerides Urine Appearance Ur Leukocyte Esterase Urine WBC Ur Squamous Epith Cells Urine Mucus POC Troponin I 06/28/21 06/28/21 06/28/21 14:53 14:44 14:13 WBC RBC Hct Plt Count MPV Neut % (Auto) Lymph % (Auto) [place] % (Auto) Lymph # (Auto) [place] # (Auto) Absolute Neutrophils PT INR APTT Sodium Potassium Carbon Dioxide Creatinine 2.1 H POC Creatinine 2.2 H Glucose 125 H Uric Acid Phosphorus NT-Pro-B Natriuret Pep 3092.0 H Total Protein Triglycerides Urine Appearance Hazy A Ur Leukocyte Esterase 500 A Urine WBC 110 H Ur Squamous Epith Cells 7 H Urine Mucus Few A POC Troponin I 0 L 06/28/21 14:13 WBC 11.8 H RBC Hct 46.6 H Plt Count MPV 11.7 H Neut % (Auto) 95.0 H Lymph % (Auto) 4.3 L [place] % (Auto) 0.4 L Lymph # (Auto) 0.51 L [place] # (Auto) 0.05 L Absolute Neutrophils 11.17 H PT INR APTT Sodium Potassium Carbon Dioxide Creatinine POC Creatinine Glucose Uric Acid Phosphorus NT-Pro-B Natriuret Pep Total Protein Triglycerides Urine Appearance Ur Leukocyte Esterase Urine WBC Ur Squamous Epith Cells Urine Mucus POC Troponin I Meds: Medications Hydrocodone Bitart/Acetaminophen (Hydrocodone/Apap 10/325mg Tablet) 1 tab PO TID PRN; Protocol PRN Reason: pain Last Admin: 06/30/21 02:21 Dose: 1 tab Documented by: Aspirin (Aspirin 81 Mg Tab.Chew) 81 mg PO DAILY [facility] Last Admin: 06/30/21 08:20 Dose: 81 mg Documented by: Atorvastatin Calcium (Atorvastatin 40 Mg Tablet) 40 mg PO HS [facility] Last Admin: 06/29/21 21:28 Dose: 40 mg Documented by: Benzonatate (Benzonatate 100 Mg Capsule) 200 mg PO TIDP PRN PRN Reason: Cough Last Admin: 06/30/21 07:25 Dose: 200 mg Documented by: Bupropion HCl (Bupropion 100 Mg Tablet) 100 mg PO QDAY [facility] Last Admin: 06/30/21 08:20 Dose: 100 mg Documented by: Diazepam (Diazepam 5 Mg Tablet) 5 mg PO HSP PRN PRN Reason: insomnia Last Admin: 06/29/21 22:31 Dose: 5 mg Documented by: Diltiazem HCl (Diltiazem 120 Mg Cap.Xl.24h) 120 mg PO DAILY [facility] Last Admin: 06/30/21 08:20 Dose: 120 mg Documented by: Docusate Sodium (Docusate Sodium 100 Mg Capsule) 100 mg PO BID [facility] Last Admin: 06/30/21 08:20 Dose: 100 mg Documented by: Heparin Sodium/Sodium Chloride (25,000 unit/ Premix) 500 mls @ 35.108 mls/hr IV .[id number] [facility]; Protocol Last Titration: 06/30/21 06:42 Dose: 12 unit/kg/hr, 23.405 mls/hr Documented by: Ceftriaxone Sodium 2 gm/ (Dextrose) 50 mls @ 100 mls/hr IV DAILY [facility]; Protocol Last Infusion: 06/29/21 13:08 Dose: Infused Documented by: Azithromycin 250 mg/ Dextrose 250 mls @ 250 mls/hr IV DAILY@1000 [facility]; Protocol Stop: 06/30/21 10:59 Last Infusion: 06/29/21 12:20 Dose: Infused Documented by: Lactulose (Lactulose 20 Gm/30 Ml Oral.Joanna) 10 gm PO DAILYP PRN PRN Reason: Constipation Loratadine (Loratadine 10 Mg Tablet) 10 mg PO QDAY [facility] Last Admin: 06/30/21 08:20 Dose: 10 mg Documented by: Nystatin (Nystatin Powder Bottle 15gm) 1 dose TOPICAL BID [facility] Last Admin: 06/29/21 21:38 Dose: 1 dose Documented by: Ondansetron HCl (Ondansetron 4 Mg Odt Tablet) 4 mg SL Q6HP PRN PRN Reason: Nausea And Vomiting Budesonide- Formoterol [ Symbicort] 160-4.5 Mcg Inhaler 2 dose INH BID [facility] Last Admin: 06/29/21 22:30 Dose: Not Given Documented by: Combivent Respimat ( Ipratropium [place] And Albuterol Inhalation 20mcg/100mcg/Act) 1 dose INH BID [facility] Last Admin: 06/29/21 22:31 Dose: 1 dose Documented by: Senna (Sennosides 1 Tablet) 2 tab PO HSP PRN PRN Reason: Constipation Sodium Chloride (0.9 % Sodium Chloride 10 Ml Syringe) 10 ml IV Q8 [facility] Last Admin: 06/30/21 05:53 Dose: 10 ml Documented by: Vitamin D (Vitamin D3 25 Mcg Tablet) 25 mcg PO DAILY [facility] Last Admin: 06/30/21 08:20 Dose: 25 mcg Documented by: Warfarin Sodium (Warfarin Per Pharmacy) 1 order PO [facility] [place] Sodium (Warfarin 5 Mg Tablet) 5 mg PO ONCE@1400 ONE Stop: 06/30/21 14:01 A/P Narrative A/P Narrative: A/P: #Acute hypoxic respiratory failure: Considering her tachycardia/hypoxia acute onset/elevated BNP/especially with right lower extremity DVT, there is a very high chance this patient had a thromboembolic episode -We are unable to obtain a CTA due to her CKD -Her GFR is 23, which precludes her from DOAC therapy -We will start her on warfarin and cover her with IV heparin until INR is above 2 for 24 hours -Oxygen as needed. #CAP: ceftriaxone/azithromycin for CAP #?UTI: recheck UA #h/o CHF: I do not see echocardiogram on file. Ordered. -appears euvolemic. Not in florid heart failure. Do not suspect significant volume overload. #Atrial fibrillation: resume metoprolol #Hyponatremia: #CKD IV: follows with Dr. Roberson #COPD w/chronic bronchitis (not on home O2): on Symbicort resumed #Tobacco abuse: Smoking cessation counseling #Anxiety: On diazepam at home #Chronic pain on opiate therapy: resume [place] 10 mg 3 times daily as needed for pain #PVD: on ASA/Statin #ppx: warfarin-heparin bridge CODE STATUS-discussed with patient and she chooses to be full code. Time Spent With Patient Time: Total time spent is greater than 50% in coordination of care (as documented) at patient's floor/unit and/or counseling patient: Total time spent with greater than 50% in coordination of care (as documented) at patient's floor/unit and/or counseling patient:: 35 - 50 minutes QUALITY VTE Deep Vein Thrombosis/Pulmonary Embolism Present on Admission: Yes
[2021-06-30] MEDS: Budesonide-Formoterol [Symbicort] 160-4.5 mcg Inhaler INH SCH ×2 (08:57→21:39)
[2021-06-30] MEDS: NYSTATIN POWDER BOTTLE 15GM TOPICAL SCH ×2 (08:57→21:39)
[2021-06-30] MEDS: COMBIVENT RESPIMAT INH SCH ×2 (08:57→21:39)
[2021-06-30] MEDS: cefTRIAXone 2 GM in DEXTROSE 5% IN WATER 50 ML IV SCH (08:58)
[2021-06-30] MEDS ORDERED: ASPIRIN 81 MG TAB.CHEW PO SCH (09:00)
[2021-06-30] MEDS ORDERED: VITAMIN D3 25 MCG TABLET PO SCH (09:00)
[2021-06-30] MEDS ORDERED: LORATADINE 10 MG TABLET PO SCH (09:00)
[2021-06-30] MEDS ORDERED: buPROPion 100 MG TABLET PO SCH (09:00)
[2021-06-30] MEDS ORDERED: BUSPIRONE 10 MG PO SCH (09:00)
[2021-06-30] MEDS ORDERED: DILTIAZEM 120 MG CAP.XL.24H PO SCH (09:00)
[2021-06-30] MEDS: SODIUM CHLORIDE 1 GM TABLET PO SCH ×3 (09:03→21:37)
[2021-06-30] MEDS ORDERED: FLU VACC QS2021-22(6MOS UP)/PF 60 MCG/0.5 ML SYRINGE IM ONE (10:00)
[2021-06-30] MEDS: AZITHROMYCIN 250 MG in DEXTROSE 5% IN WATER 250 ML IV SCH (10:00)
[2021-06-30] MEDS ORDERED: METOPROLOL SUCCINATE 50 MG TAB.XL.24H PO ONE (10:15)
[2021-06-30] MEDS ORDERED: ACETAMINOPHEN 325 MG TABLET PO PRN (10:34)
[2021-06-30 10:38] LABS: Band Neutrophils % 2 % (0-10); Lymphocytes % 2 % (15-49); Monocytes % (Manual) 1 % (1-12); Platelet Estimate NORMAL (Normal); RBC Morphology NORMAL (Normal); Segmented Neutrophils % 95 % (38-78)
[2021-06-30 12:00] LABS: Appearance,Urine CLEAR (Clear); Bilirubin,Urine Negative (Negative); Color,Urine STRAW; Culture Indicated,Urine No; Glucose,Urine (UA) Negative (Negative); Ketones,Urine Negative (Negative); Leukocyte Esterase,Urine Negative /uL (Negative); Nitrate,Urine Negative (Negative); Protein,Urine Negative (Negative); Specific Gravity,Urine 1.008 (1.000-1.035); Urine Blood Negative (Negative); Urobilinogen,Urine Negative
--- NOTE | 2021-06-30 12:08 | Discharge Summary ---
Discharge Provider Provider Patient information: Note initiated : 06/30/21 at 12:05 pm Service Date, if different from initiated Date: [] Patient: Nasima Solo 70 y/o F admitted on 06/28/21 for shortness of breath. Chief Complaint: [] Date of admission: 06/28/21 18:50 Discharge date: 07/01/21 Primary care physician: Guadalupe Oliveira DO Consults: 06/28/21 Consult to Physician [CONS] Stat Comment: Consulting Provider: Sarbjit Rodriguez Reason For Exam: Physician to Consult Discharge Meds Discharge Medications Home Medications budesonide-formoterol HFA 160 mcg-4.5 mcg/actuation aerosol inhaler (Symbicort) 2 puff INHALATION BID #10.2 g 03/12/17 [Rx Confirmed 06/28/21 Last Taken 06/28/21 09:00] chlorthalidone 25 mg tablet 25 mg PO DAILY #30 tab 10/30/18 [History Confirmed 06/28/21 Last Taken 06/28/21 09:00] diltiazem HCl 120 mg capsule,24 hr,extended release 120 mg PO QDAY #90 cap 11/03/18 [Rx Confirmed 06/28/21 Last Taken 06/28/21 09:00] aspirin 81 mg tablet,delayed release (Adult Aspirin Regimen) 81 mg PO QDAY 01/13/19 [History Confirmed 06/28/21 Last Taken 1 Day Ago ~06/27/21] cholecalciferol (vitamin D3) 25 mcg (1,000 unit) capsule (Vitamin D3) 1,000 unit PO QDAY #90 cap 06/13/20 [Rx Confirmed 06/28/21 Last Taken 06/28/21 09:00] hydrocodone 10 mg-acetaminophen 325 mg tablet 1 tab PO TID #90 tab MDD 3 04/18/21 [Rx Confirmed 06/28/21 Last Taken 06/28/21] nystatin 100,000 unit/gram topical powder 1 applic TOPICAL BID #30 g 06/13/21 [Rx Confirmed 06/28/21 Last Taken Unknown] atorvastatin 40 mg tablet 1 tab PO HS 06/28/21 [History Confirmed 06/28/21 Last Taken 06/28/21] bupropion HCl 100 mg tablet 1 tab PO QDAY 06/28/21 [History Confirmed 06/28/21 Last Taken 06/28/21 09:00] buspirone 10 mg tablet 1 tab PO QDAY 06/28/21 [History Confirmed 06/28/21 Last Taken Unknown] diazepam 5 mg tablet 1 tab PO HSP PRN 06/28/21 [History Confirmed 06/28/21 Last Taken 06/27/21 21:00] docusate sodium 100 mg capsule (Colace) 100 mg PO BID 06/28/21 [History Confirmed 06/28/21 Last Taken 06/26/21] metoprolol succinate 50 mg tablet,extended release 24 hr 1 tab PO BID 06/28/21 [History Confirmed 06/29/21 Last Taken 06/28/21 09:00] naloxone 4 mg/actuation nasal spray (Narcan) 4 mg INTRANASAL ONCE PRN 06/28/21 [History Confirmed 06/28/21 Last Taken Unknown] ondansetron 4 mg disintegrating tablet 1 tab PO Q6HP PRN 06/28/21 [History Confirmed 06/28/21 Last Taken Unknown] ipratropium 20 mcg-albuterol 100 mcg/actuation mist for inhalation (Combivent Respimat) 1 puff INHALATION BID 06/29/21 [History Confirmed 06/29/21 Last Taken Unknown] loratadine 10 mg tablet (Claritin) 10 mg PO QDAY 06/29/21 [History Confirmed 06/29/21 Last Taken Unknown] cefdinir 300 mg capsule 300 mg PO BID #8 cap 06/30/21 [Rx Last Taken Unknown] enoxaparin 80 mg/0.8 mL subcutaneous syringe (Lovenox) 80 mg (0.8 mL) SUBCUT Q12H #8 ml 06/30/21 [Rx Last Taken Unknown] warfarin 5 mg tablet 5 mg PO QDAY #30 tab 06/30/21 [Rx Last Taken Unknown] COURSE Hospital Course Hospital course: Interval history: Ms. Solo is a 70 year old F with history of CHF, CKD, hypertension, atrial fibrillation, COPD, active tobacco use, chronic bronchitis, chronic pain syndrome on opiate therapy, peripheral vascular disease, hyperlipidemia, is admitted for acute onset of chills with shortness of breath this morning. Patient was feeling completely well yesterday, she had her appointment with wallpaper installer and cardiac stress test was ordered as an outpatient. Her wallpaper installer had a discussion about anticoagulation for atrial fibrillation with her, patient declined full dose anticoagulation (she was concerned that she could have at least scars), but agreed to start baby aspirin. This morning however she acutely had chills accompanied with shortness of breath. Denies any cough or sputum production. When she came to the emergency room she was on 91% on 4 L/min of oxygen via nasal cannula. Received 2 DuoNeb's in ambulance with no significant relief. She denied nausea vomiting fever, chest pain or chest pressure. She is accompanied by her in the room. She continues to smoke. Course in the emergency room-tachycardic in 120s. Oxygen saturations in low 80s, needed to be on 4 to 5 L/min via nasal cannula. Lactate 4.4. BNP elevated at 3000. started on IV heparin. 06/29-she is comfortable. Currently on room air. SPO2 96%. Wants to go home, but I explained the indication for warfarin therapy. She agrees to stay. 06/30 Patient breathing better. Currently on room air. On IV heparin drip with warfarin. Leukocytosis worsened. Manual differential pending. Hyponatremia and low Phos. Has a dry cough. 07/01 Patient is on room air doing well from that standpoint. she had to have some worsening of her sciatica last night. Otherwise no new complaints. Repeat INR in 2 days and will send home on Lovenox until INR between 2 and 3. A/P: #Acute hypoxic respiratory failure:Considering her tachycardia/hypoxia acute onset/elevated BNP/especially with right lower extremity DVT, there is a very high chance this patient had a thromboembolic episode -We are unable to obtain a CTA due to her CKD -Her GFR is 23, which precludes her from DOAC therapy -We will start her on warfarin and cover her with IV heparin until INR is above 2 for 24 hours #CAP:ceftriaxone/azithromycin for CAP #h/o CHF:I do not see echocardiogram on file. Ordered. -appears euvolemic. Not in florid heart failure. Do not suspect significant volume overload. #Atrial fibrillation:resume metoprolol #Hyponatremia: #CKD IV: follows with Dr. Roberson #COPD w/chronic bronchitis (not on home O2): on Symbicort resumed #Tobacco abuse: Smoking cessation counseling #Anxiety: On diazepam at home #Chronic pain on opiate therapy: resume [place] 10 mg 3 times daily as needed for pain #PVD: on ASA/Statin #ppx: warfarin-heparin bridge Discharge diagnosis: Acute hypoxic respiratory failure pulmonary embolism [facility] pneumonia Secondary discharge diagnosis: History of CHF A. fib hyponatremia chronic kidney disease COPD tobacco abuse anxiety chronic pain peripheral vascular disease Time Spent with Patient Time attestation: Total time spent providing and/or coordinating discharge services: Time spent: Greater than 30 minutes EXAM Constitutional Vitals: Temp Pulse Resp BP Pulse Ox 98 F 85 16 92/70 93 06/30/21 08:03 06/30/21 07:00 06/30/21 10:04 06/30/21 10:04 06/30/21 10:04 Discharge Data Data Completed and Pending Labs on day of discharge: Labs from last 24 hours 06/30/21 06/30/21 06/30/21 10:00 04:10 04:10 WBC RBC Hgb Hct MCV MCH MCHC RDW Plt Count MPV Neut % (Auto) Lymph % (Auto) [place] % (Auto) Eos % (Auto) Baso % (Auto) Lymph # (Auto) [place] # (Auto) Eos # (Auto) Baso # (Auto) Seg Neutrophils % 95 H Band Neutrophils % 2 Lymphocytes % 2 L Monocytes % (Manual) 1 Absolute Neutrophils Platelet Estimate Normal RBC Morphology Normal PT INR APTT Sodium Potassium Chloride Carbon Dioxide Anion Gap BUN Creatinine GFR Calculation Glucose Uric Acid Calcium Phosphorus Magnesium Total Bilirubin Direct Bilirubin GGT AST ALT Alkaline Phosphatase Lactate Dehydrogenase Total Protein Albumin Globulin Albumin/Globulin Ratio Triglycerides Procalcitonin 21.36 H Urine Color Straw Urine Appearance Clear Urine pH 6.0 Ur Specific [place] 1.008 Urine Protein Negative Urine Glucose (UA) Negative Urine Ketones Negative Urine Occult Blood Negative Urine Nitrate Negative Urine Bilirubin Negative Urine Urobilinogen Negative Ur Leukocyte Esterase Negative Ur Culture Indicated? No 06/30/21 06/30/21 06/30/21 04:10 04:10 04:10 WBC RBC Hgb Hct MCV MCH MCHC RDW Plt Count MPV Neut % (Auto) Lymph % (Auto) [place] % (Auto) Eos % (Auto) Baso % (Auto) Lymph # (Auto) [place] # (Auto) Eos # (Auto) Baso # (Auto) Seg Neutrophils % Band Neutrophils % Lymphocytes % Monocytes % (Manual) Absolute Neutrophils Platelet Estimate RBC Morphology PT 13.8 INR 1.0 APTT 53.2 H Sodium 130 L Potassium 3.3 Chloride 97 Carbon Dioxide 20 L Anion Gap 13.0 BUN 23 Creatinine 1.5 H GFR Calculation 34 Glucose 135 H Uric Acid 8.3 H Calcium 9.5 Phosphorus 2.2 L Magnesium 1.6 Total Bilirubin 0.4 Direct Bilirubin < 0.2 GGT 22 AST 17 ALT 8 Alkaline Phosphatase 62 Lactate Dehydrogenase 172 Total Protein 5.6 L Albumin 3.3 Globulin 2.3 Albumin/Globulin Ratio 1.4 Triglycerides 152 H Procalcitonin Urine Color Urine Appearance Urine pH Ur Specific [place] Urine Protein Urine Glucose (UA) Urine Ketones Urine Occult Blood Urine Nitrate Urine Bilirubin Urine Urobilinogen Ur Leukocyte Esterase Ur Culture Indicated? 06/30/21 06/29/21 06/29/21 04:10 18:16 15:00 WBC 14.4 H RBC 3.54 L Hgb 11.4 Hct 33.8 L MCV 95.5 MCH 32.2 MCHC 33.7 RDW 13.6 Plt Count 142 MPV 11.8 H Neut % (Auto) 91.8 H Lymph % (Auto) 5.5 L [place] % (Auto) 2.6 Eos % (Auto) 0 Baso % (Auto) 0.1 Lymph # (Auto) 0.79 L [place] # (Auto) 0.38 Eos # (Auto) 0 Baso # (Auto) 0.02 Seg Neutrophils % Band Neutrophils % Lymphocytes % Monocytes % (Manual) Absolute Neutrophils 13.24 H Platelet Estimate RBC Morphology PT INR APTT 70.5 H > 200 H* Sodium Potassium Chloride Carbon Dioxide Anion Gap BUN Creatinine GFR Calculation Glucose Uric Acid Calcium Phosphorus Magnesium Total Bilirubin Direct Bilirubin GGT AST ALT Alkaline Phosphatase Lactate Dehydrogenase Total Protein Albumin Globulin Albumin/Globulin Ratio Triglycerides Procalcitonin Urine Color Urine Appearance Urine pH Ur Specific [place] Urine Protein Urine Glucose (UA) Urine Ketones Urine Occult Blood Urine Nitrate Urine Bilirubin Urine Urobilinogen Ur Leukocyte Esterase Ur Culture Indicated? 06/29/21 05:50 WBC RBC Hgb Hct MCV MCH MCHC RDW Plt Count MPV Neut % (Auto) Lymph % (Auto) [place] % (Auto) Eos % (Auto) Baso % (Auto) Lymph # (Auto) [place] # (Auto) Eos # (Auto) Baso # (Auto) Seg Neutrophils % Band Neutrophils % Lymphocytes % Monocytes % (Manual) Absolute Neutrophils Platelet Estimate RBC Morphology PT INR APTT > 200 H* Sodium Potassium Chloride Carbon Dioxide Anion Gap BUN Creatinine GFR Calculation Glucose Uric Acid Calcium Phosphorus Magnesium Total Bilirubin Direct Bilirubin GGT AST ALT Alkaline Phosphatase Lactate Dehydrogenase Total Protein Albumin Globulin Albumin/Globulin Ratio Triglycerides Procalcitonin Urine Color Urine Appearance Urine pH Ur Specific [place] Urine Protein Urine Glucose (UA) Urine Ketones Urine Occult Blood Urine Nitrate Urine Bilirubin Urine Urobilinogen Ur Leukocyte Esterase Ur Culture Indicated? Preliminary micro results at discharge 06/28/21 14:26 Blood Culture - Preliminary Blood 06/28/21 14:13 Blood Culture - Preliminary Blood Discharge Plan Patient/Caregiver Discharge Instructions Activity: increase activity as tolerated Diet: Cardiac Activity Restrictions/Additional Instructions: Follow-up INR in warfarin adjustments per pharmacy and PCP. Prescriptions: New warfarin 5 mg tablet 5 mg PO QDAY Qty: 30 0RF Rx Instructions: Warfarin adjustments per pharmacy enoxaparin [Lovenox] 80 mg/0.8 mL syringe 80 mg subcut Q12H Qty: 8 0RF Rx Instructions: stop when INR 2-3. cefdinir 300 mg capsule 300 mg PO BID Qty: 8 0RF Continued diltiazem HCl 120 mg capsule,extended release 24 hr 120 mg PO QDAY Qty: 90 1RF cholecalciferol (vitamin D3) [Vitamin D3] 25 mcg (1,000 unit) capsule 1,000 unit PO QDAY Qty: 90 4RF hydrocodone-acetaminophen 10-325 mg tablet 1 tab PO TID MDD 3 Qty: 90 0RF Rx Instructions: *MUST LAST 30 DAYS* P/U 06/23, START 06/26 chlorthalidone 25 mg tablet 25 mg PO DAILY Qty: 30 0RF Label Comments: TAKE 1 TABLET(S) EVERY DAY BY ORAL ROUTE. budesonide-formoterol [Symbicort] 160-4.5 mcg/actuation HFA aerosol inhaler 2 puff INHALATION BID Qty: 10.2 6RF Rx Instructions: administer with spacer aspirin [Adult Aspirin Regimen] 81 mg tablet,delayed release (DR/EC) 81 mg PO QDAY 0RF Label Comments: Pt took 06/27/21 in the morning nystatin 100,000 unit/gram powder 1 applic topical BID Qty: 30 3RF Label Comments: Pt does not take this atorvastatin 40 mg tablet 1 tab PO HS 0RF Label Comments: Pt took 06/28/21 in the am metoprolol succinate 50 mg tablet extended release 24 hr 1 tab PO BID 0RF Label Comments: Pt states that she takes"one pill in the morning and one pill at night." bupropion HCl 100 mg tablet 1 tab PO QDAY 0RF buspirone 10 mg tablet 1 tab PO QDAY 0RF Label Comments: Pt stated to this RN that she "does not take" this med ondansetron 4 mg tablet,disintegrating 1 tab PO Q6HP PRN (Reason: nausea) 0RF Label Comments: Pt takes prn for nausea, does not remember when she had it last. diazepam 5 mg tablet 1 tab PO HSP PRN (Reason: insomnia) 0RF naloxone [Narcan] 4 mg/actuation spray,non-aerosol 4 mg INTRANASAL ONCE PRN (Reason: Opioid Overdose) 0RF Label Comments: Pt states she,"has it in case i take too much pain medicine." Rx Instructions: spray 1 dose into ONE nostril; alternate nostrils w each dose until help arrives docusate sodium [Colace] 100 MG capsule 100 mg PO BID 0RF loratadine [Claritin] 10 mg Tablet 10 mg PO QDAY 0RF Combivent Respimat 20-100 mcg/actuation Mist 1 puff INHALATION BID 0RF Other Ambulatory Orders: Prothrombin Time INR (Routine) Timeframe: 3 Days Facility: [facility] - Location: Laboratory Ordered By: Lopez Puri Follow Up Plan Follow up with: Guadalupe Oliveira DO [Primary Care Provider] - Patient Disposition: Home, Self-Care Prognosis: Fair Overall status at discharge: patient is progressing back to baseline Discharge Orders: Discharge Order (Routine); Ordered 07/01/21 Ordered By: Lopez Puri QUALITY VTE Deep Vein Thrombosis/Pulmonary Embolism Present on Admission: Yes
[2021-06-30] MEDS ORDERED: WARFARIN 5 MG TABLET PO ONE (14:00)
[2021-06-30] MEDS ORDERED: MELATONIN 3 MG TABLET PO SCH (21:00)
[2021-06-30] MEDS: ATORVASTATIN 40 MG TABLET PO SCH (21:36)
[2021-06-30] MEDS: ENOXAPARIN 100 MG/ML SYRINGE SQ SCH (21:36)
[2021-06-30] MEDS: METOPROLOL SUCCINATE 50 MG TAB.XL.24H PO SCH (21:38)
[2021-06-30] MEDS: DIAZEPAM 5 MG TABLET PO PRN (21:38)
[2021-06-30] MEDS ORDERED: METHOCARBAMOL 1,000 MG/10 ML VIAL IV ONE (23:45)
[2021-06-30] MEDS: morphine 4 MG/ML VIAL IV PRN (23:58)
[2021-07-01] MEDS ORDERED: METHOCARBAMOL 1,000 MG/10 ML VIAL ONE (00:01)
[2021-07-01] MEDS: HYDROcodone/APAP 10/325MG TABLET PO PRN ×2 (03:06→09:36)
[2021-07-01] MEDS: morphine 4 MG/ML VIAL IV PRN (03:59)
[2021-07-01] MEDS ORDERED: morphine 4 MG/ML VIAL ONE ×2 (04:03)
[2021-07-01] MEDS: 0.9 % SODIUM CHLORIDE 10 ML SYRINGE IV SCH (05:55)
[2021-07-01 06:54] LABS: INR 1.4 (0.9-1.1); Prothrombin Time 17.4 sec (11.9-14.5)
[2021-07-01 07:13] LABS: Basophils # (Auto) 0.02 K/mcL (0.00-0.30); Basophils % (Auto) 0.2 % (0.0-2.0); Eosinophils # (Auto) 0.09 K/mcL (0.00-0.70); Hematocrit 30.9 % (34.1-44.9); Hemoglobin 9.9 g/dL (11.2-15.7); Mean Cell Volume 96.3 fL (80.0-100.0); Mean Platelet Volume 11.7 fL (7.4-10.4); Monocytes # (Auto) 0.45 K/mcL (0.10-0.90); Monocytes % (Auto) 4.8 % (1.0-12.0); Platelet Count 136 K/mcL (140-440); RBC 3.21 M/mcL (3.59-5.38); Red Cell Distribution Width 13.8 % (11.5-14.5); WBC 9.4 K/mcL (4.5-11.0)
[2021-07-01 07:18] LABS: ALT/SGPT 11 U/L (<40); AST/SGOT 15 U/L (<32); Albumin 3.1 gm/dL (3.2-5.2); Albumin/Globulin Ratio 1.5 (1.0-2.3); Alkaline Phosphatase 56 U/L (39-117); Bilirubin,Direct < 0.2 mg/dL (0-0.3); Bilirubin,Total 0.4 mg/dL (0.1-1.0); Blood Urea Nitrogen 22 mg/dL (8-23); Calcium 9.2 mg/dL (8.6-10.4); Carbon Dioxide 24 mmol/L (22-30); Chloride 99 mmol/L (96-108); Globulin 2.1 gm/dL (2.2-3.7); Glomerular Filtration Rate 34; Glucose 86 mg/dL (70-105); Lactate Dehydrogenase 137 U/L (135-225); Phosphorous 2.8 mg/dL (2.5-4.5); Triglycerides 155 mg/dL (<150); Uric Acid 9.1 mg/dL (2.5-8.0)
[2021-07-01] MEDS ORDERED: MAGNESIUM SULFATE 2 GM/50 ML BAG IV ONE (08:50)
[2021-07-01] MEDS ORDERED: POTASSIUM CHLORIDE 20 MEQ TABLET PO ONE (08:51)
[2021-07-01] MEDS: LORATADINE 10 MG TABLET PO SCH (09:09)
[2021-07-01] MEDS: ASPIRIN 81 MG TAB.CHEW PO SCH (09:09)
[2021-07-01] MEDS: buPROPion 100 MG TABLET PO SCH (09:09)
[2021-07-01] MEDS: DOCUSATE SODIUM 100 MG CAPSULE PO SCH (09:09)
[2021-07-01] MEDS: VITAMIN D3 25 MCG TABLET PO SCH (09:09)
[2021-07-01] MEDS: DILTIAZEM 120 MG CAP.XL.24H PO SCH (09:10)
[2021-07-01] MEDS: cefTRIAXone 2 GM in DEXTROSE 5% IN WATER 50 ML IV SCH (09:10)
[2021-07-01] MEDS: METOPROLOL SUCCINATE 50 MG TAB.XL.24H PO SCH (09:10)
[2021-07-01] MEDS: ENOXAPARIN 100 MG/ML SYRINGE SQ SCH (09:10)
[2021-07-01] MEDS: COMBIVENT RESPIMAT INH SCH (09:11)
[2021-07-01] MEDS: Budesonide-Formoterol [Symbicort] 160-4.5 mcg Inhaler INH SCH (09:11)
[2021-07-01] MEDS: NYSTATIN POWDER BOTTLE 15GM TOPICAL SCH (09:12)
== END 2021-07-01 11:40 | disposition home or self-care (01) | DRG 189 ==
LOC: ED 14:02 → ICU 18:50 → MEDSUR 06-30 14:25
PROVIDERS: ADMIT Internal Medicine Medical Oncology; ATTEND Internal Medicine

== ENCOUNTER 2025-02-08 11:34 | Inpatient (IN) ==
[2025-02-08] MEDS: 0.9 % SODIUM CHLORIDE 500 ML IV ONE ×4 (12:21→13:44)
[2025-02-08 12:45] LABS: Basophils # (Auto) 0.04 K/mcL (0.00-0.30); Basophils % (Auto) 0.4 % (0.0-2.0); Eosinophils # (Auto) 0.13 K/mcL (0.00-0.70); Eosinophils % (Auto) 1.2 % (0.0-7.0); Hematocrit 44.9 % (34.1-44.9); Hemoglobin 14.3 g/dL (11.2-15.7); Lymphocytes # (Auto) 1.36 K/mcL (1.50-4.80); Lymphocytes % (Auto) 12.9 % (15.5-49.0); Mean Corpuscular HGB Conc 31.8 g/dL (31.0-36.0); Monocytes # (Auto) 0.52 K/mcL (0.10-0.90); Monocytes % (Auto) 4.9 % (1.0-12.0); Neutrophils % (Auto) 80.2 % (38.0-78.0); Platelet Count 176 K/mcL (140-440); RBC 4.48 M/mcL (3.59-5.38); WBC 10.5 K/mcL (4.5-11.0)
[2025-02-08 13:11] LABS: ALT/SGPT 9 U/L (<40); AST/SGOT 14 U/L (<32); Albumin 4.0 gm/dL (3.2-5.2); Albumin/Globulin Ratio 1.7 (1.0-2.3); Alkaline Phosphatase 131 U/L (39-117); Anion Gap 9.0 (8.0-16.0); Bilirubin,Total 0.6 mg/dL (0.1-1.0); Blood Urea Nitrogen 34 mg/dL (8-23); Calcium 10.7 mg/dL (8.6-10.4); Carbon Dioxide 22 mmol/L (22-30); Chloride 102 mmol/L (96-108); Globulin 2.3 gm/dL (2.2-3.7); Glucose 106 mg/dL (70-105); Potassium 6.6 mmol/L (3.3-5.1); Sodium 133 mmol/L (133-145)
[2025-02-08 13:22] LABS: POC Blood Urea Nitrogen 30.0 (6-20); POC CO2 19.0 (22-30); POC Calcium, Ionized 1.29 (1.16-1.32); POC Glucose, Random 95.0 (70-105)
[2025-02-08] MEDS: INSULIN REGULAR, HUMAN 1 UNIT/0.01 ML UNIT IV ONE (13:44)
[2025-02-08] MEDS: CALCIUM GLUCONATE 9.3 MEQ in DEXTROSE 5% IN WATER 50 ML IV ONE (13:45)
[2025-02-08] MEDS: DEXTROSE 50% 50 ML VIAL IV ONE (13:45)
[2025-02-08] MEDS: FUROSEMIDE 100 MG/10 ML VIAL IV ONE (13:46)
[2025-02-08 14:21] LABS: Bacteria,Urine Mod /hpf (0); Bilirubin,Urine NEGATIVE (Negative); Color,Urine YELLOW; Glucose,Urine (UA) NEGATIVE (Negative); Ketones,Urine NEGATIVE (Negative); Leukocyte Esterase,Urine LARGE /uL (Negative); PH,Urine 6.0 (5.0-9.0); Protein,Urine NEGATIVE (Negative); Specific Gravity,Urine 1.010 (1.000-1.035); Urobilinogen,Urine 0.2 mg/dL
[2025-02-08] MEDS: 0.9 % SODIUM CHLORIDE 1,000 ML IV SCH (14:44)
[2025-02-08] MEDS: SODIUM ZIRCONIUM CYCLOSILICATE 10 GM PACKET PO ONE ×2 (14:44→20:27)
[2025-02-08 15:35] LABS: Anion Gap 10.0 (8.0-16.0); Blood Urea Nitrogen 31 mg/dL (8-23); Calcium 10.5 mg/dL (8.6-10.4); Carbon Dioxide 18 mmol/L (22-30); Chloride 106 mmol/L (96-108); Glucose 97 mg/dL (70-105); Potassium 5.5 mmol/L (3.3-5.1); Sodium 134 mmol/L (133-145)
[2025-02-08] MEDS ORDERED: ONDANSETRON 4 MG/2 ML VIAL IV PRN (17:40)
[2025-02-08] MEDS ORDERED: ACETAMINOPHEN 325 MG TABLET PO PRN (17:40)
[2025-02-08] MEDS: cefTRIAXone 1 GM VIAL IV SCH (18:08)
[2025-02-08] MEDS: LACTATED RINGERS 1,000 ML IV SCH (18:08)
[2025-02-08] MEDS ORDERED: HYDROcodone/APAP 10/325MG TABLET PO PRN (19:13)
[2025-02-08] MEDS: IPRATROPIUM/ALBUTEROL 3 ML AMPUL.NEB NEB PRN (20:13)
[2025-02-08] MEDS: BUDESONIDE 0.5 MG/2 ML AMPUL.NEB NEB SCH (20:13)
[2025-02-08] MEDS: HEPARIN 5,000 UNIT/ML VIAL SQ SCH (20:26)
[2025-02-08] MEDS: HYDROcodone/APAP 10/325MG TABLET PO PRN (20:27)
[2025-02-08] MEDS: SENNOSIDES 1 TABLET PO SCH (20:27)
[2025-02-08] MEDS: ATORVASTATIN 40 MG TABLET PO SCH (20:27)
[2025-02-08] MEDS: 0.9 % SODIUM CHLORIDE 10 ML SYRINGE IV SCH (21:57)
[2025-02-08] MEDS: DIAZEPAM 5 MG TABLET PO PRN (23:14)
[2025-02-09 06:46] LABS: Basophils # (Auto) 0.05 K/mcL (0.00-0.30); Basophils % (Auto) 0.7 % (0.0-2.0); Eosinophils # (Auto) 0.16 K/mcL (0.00-0.70); Eosinophils % (Auto) 2.2 % (0.0-7.0); Hematocrit 39.9 % (34.1-44.9); Hemoglobin 12.7 g/dL (11.2-15.7); Lymphocytes # (Auto) 2.00 K/mcL (1.50-4.80); Lymphocytes % (Auto) 27.0 % (15.5-49.0); Mean Corpuscular HGB Conc 31.8 g/dL (31.0-36.0); Monocytes # (Auto) 0.58 K/mcL (0.10-0.90); Monocytes % (Auto) 7.8 % (1.0-12.0); Neutrophils % (Auto) 62.2 % (38.0-78.0); Platelet Count 156 K/mcL (140-440); RBC 3.94 M/mcL (3.59-5.38); WBC 7.4 K/mcL (4.5-11.0)
[2025-02-09 06:51] LABS: ALT/SGPT 7 U/L (<40); AST/SGOT 11 U/L (<32); Albumin 3.4 gm/dL (3.2-5.2); Albumin/Globulin Ratio 1.8 (1.0-2.3); Alkaline Phosphatase 106 U/L (39-117); Anion Gap 8.0 (8.0-16.0); Bilirubin,Direct 0.2 mg/dL (<0.3); Bilirubin,Total 0.5 mg/dL (0.1-1.0); Blood Urea Nitrogen 30 mg/dL (8-23); Calcium 10.0 mg/dL (8.6-10.4); Carbon Dioxide 22 mmol/L (22-30); Chloride 106 mmol/L (96-108); Globulin 1.9 gm/dL (2.2-3.7); Glucose 93 mg/dL (70-105); Phosphorous 4.0 mg/dL (2.5-4.5); Potassium 4.9 mmol/L (3.3-5.1); Sodium 136 mmol/L (133-145); Triglycerides 136 mg/dL (<150); Uric Acid 7.6 mg/dL (2.5-8.0)
[2025-02-09 08:29] VITALS: TEMP 96.8; O2SAT 99
[2025-02-09] MEDS ORDERED: METOPROLOL SUCCINATE 50 MG TAB.XL.24H PO SCH (09:00)
[2025-02-09] MEDS ORDERED: DILTIAZEM 240 MG CAP.XL.24H PO SCH ×2 (09:00)
[2025-02-09] MEDS: CLOPIDOGREL 75 MG TABLET PO SCH (09:57)
[2025-02-09] MEDS: METOPROLOL SUCCINATE 50 MG TAB.XL.24H PO SCH (09:58)
[2025-02-09] MEDS: buPROPion 150 MG TAB.XL.24H PO SCH (09:58)
== END 2025-02-09 12:20 | disposition home or self-care (01) | DRG 640 ==
LOC: ED 11:34 → MEDSUR 17:31
PROVIDERS: ADMIT Internal Medicine; ATTEND Internal Medicine